=== PATIENT | male | born 1970 | race Caucasian/White ===

== ENCOUNTER 2017-10-13 00:17 | Emergency (ER) | payer SELFPAY ==
[2017-10-13 00:27] VITALS: O2SAT 98
[2017-10-13] MEDS ORDERED: MORPHINE SULFATE 4 MG INJ IV ONE (00:44)
[2017-10-13] MEDS ORDERED: Zofran 4 MG/2 ML VIAL IV ONE (00:44)
[2017-10-13] MEDS ORDERED: Sodium Chloride 0.9% 1000 ML 1,000 ML IV STA (00:44)
--- NOTE | 2017-10-13 00:50 | ERPHSYRPT ---
- History of Present Illness Time Seen by Provider: 10/13/17 00:40 Historian: patient Exam Limitations: no limitations Patient Subjective Stated Complaint: Abdominal Pain Triage Nursing Assessment: Pt presents to the ED with complaints of right sided abdominal pain that began this morning and has worsening through the day. Pt states there is nothing that makes pain better or worse. Pt denies other complaints. Pt is A&O x4, anxious and restless, guarding right side of abdomin. Physician History: 46 y/o male comes to the ER with complaints of right sided abdominal pain that started this morning. Pt describes the pain as sharp, constant, as high as 8/10 and pt has not taken any pain meds. Pt admits to 3 episodes of nausea and vomiting and is not able to keep anything down. Pt denies any fever, chills, constipation, diarrhea, bloody stools or urinary symptoms. Pt has had a kidney stone in the past and says that it feels similarly. Timing/Duration: today Activities at Onset: none Quality: sharpness Abdominal Pain Onset Location: other (right sided abdominal tenderness) Pain Radiation: no radiation Severity of Pain-Max: severe Severity of Pain-Current: severe Modifying Factors: Improves With: nothing Associated Symptoms: nausea, vomiting Previous symptoms: no prior history Allergies/Adverse Reactions: No Known Drug Allergies Allergy (Unverified 03/19/12 14:03) Hx Tetanus, Diphtheria Vaccination/Date Given: Yes Hx Influenza Vaccination/Date Given: No Hx Pneumococcal Vaccination/Date Given: No Immunizations Up to Date: No - Review of Systems Constitutional: No Fever, No Chills Eyes: No Symptoms Ears, Nose, & Throat: No Symptoms Respiratory: No Cough, No Dyspnea Cardiac: No Chest Pain, No Edema, No Syncope Abdominal/Gastrointestinal: Abdominal Pain, Nausea, No Diarrhea Genitourinary Symptoms: No Dysuria Musculoskeletal: No Back Pain, No Neck Pain Skin: No Rash Neurological: No Dizziness, No Focal Weakness, No Sensory Changes Psychological: No Symptoms Endocrine: No Symptoms All Other Systems: Reviewed and Negative - Past Medical History Pertinent Past Medical History: No Neurological History: No Pertinent History ENT History: No Pertinent History Cardiac History: No Pertinent History Respiratory History: No Pertinent History Endocrine Medical History: No Pertinent History Musculoskeletal History: Osteoarthritis GI Medical History: No Pertinent History History: No Pertinent History Psycho-Social History: No Pertinent History Male Reproductive Disorders: No Pertinent History Other Medical History: BACK PAIN - Past Surgical History Past Surgical History: Yes Neuro Surgical History: No Pertinent History Cardiac: No Pertinent History Respiratory: No Pertinent History Gastrointestinal: No Pertinent History Genitourinary: No Pertinent History Musculoskeletal: Orthopedic Surgery Male Surgical History: No Pertinent History Other Surgical History: lt knee x 5 - Social History Smoking Status: Current every day smoker How long have you smoked: 20 years Exposure to second hand smoke: Yes Drug Use: none Patient Lives Alone: No - Nursing Vital Signs Nursing Vital Signs: Initial Vital Signs Temperature 98.0 F 10/13/17 00:23 Pulse Rate 60 10/13/17 00:23 Respiratory Rate 23 10/13/17 00:23 Blood Pressure 164/110 10/13/17 00:23 O2 Sat by Pulse Oximetry 98 10/13/17 00:23 Pain Scale Pain Intensity 4 - Physical Exam General Appearance: no apparent distress, alert Eye Exam: PERRL/EOMI, eyes nml inspection Ears, Nose, Throat Exam: normal ENT inspection, pharynx normal, moist mucous membranes Neck Exam: normal inspection, non-tender, supple, full range of motion Respiratory Exam: normal breath sounds, lungs clear, No respiratory distress Cardiovascular Exam: regular rate/rhythm, normal heart sounds Gastrointestinal/Abdomen Exam: soft, tenderness, No normal bowel sounds, No distention, No mass Back Exam: normal inspection, normal range of motion, No CVA tenderness, No vertebral tenderness Extremity Exam: normal inspection, normal range of motion, pelvis stable Neurologic Exam: alert, oriented x 3, cooperative, normal mood/affect, nml cerebellar function, sensation nml, No motor deficits Skin Exam: normal color, warm, dry SpO2: 98 Oxygen Delivery: Room Air - Course Nursing assessment & vital signs reviewed: Yes Ordered Tests: Active Orders 24 hr Category Date Time Status IV Insertion STAT Care 10/13/17 00:44 Active ABDOMEN AND PELVIS W&WO CONTRA [CT] Stat Exams 10/13/17 00:45 Taken AMYLASE Stat Lab 10/13/17 00:48 Completed CBC W DIFF Stat Lab 10/13/17 00:48 Completed CMP Stat Lab 10/13/17 00:48 Completed LIPASE Stat Lab 10/13/17 00:48 Completed Lactic Acid Stat Lab 10/13/17 01:00 Completed UA W/RFX UR CULTURE Stat Lab 10/13/17 03:12 Received Medication Summary Discontinued Medications Generic Name Dose Route Start Last Admin Trade Name Ragini PRN Reason Stop Dose Admin Hydromorphone HCl 1 mg 10/13/17 01:26 10/13/17 01:33 Hydromorphone 1 Mg/Ml Ampule IV 10/13/17 01:27 1 mg STAT ONE Administration Hydromorphone HCl Confirm 10/13/17 01:32 Hydromorphone 1 Mg/Ml Ampule Administered 10/13/17 01:33 Dose 1 mg .ROUTE .STK-MED ONE Sodium Chloride 1,000 mls @ 999 mls/hr 10/13/17 00:44 10/13/17 00:57 Sodium Chloride 0.9% 1000 Ml IV 10/13/17 01:44 999 mls/hr .Q1H1M STA Administration Sodium Chloride Confirm 10/13/17 00:51 Sodium Chloride 0.9% 1000 Ml Administered 10/13/17 00:52 Dose 1,000 mls @ ud .ROUTE .STK-MED ONE Ketorolac Tromethamine 30 mg 10/13/17 01:43 10/13/17 01:45 Toradol 30 Mg Injection IV 10/13/17 01:44 30 mg STAT ONE Administration Ketorolac Tromethamine Confirm 10/13/17 01:44 Toradol 30 Mg Injection Administered 10/13/17 01:45 Dose 30 mg .ROUTE .STK-MED ONE Morphine Sulfate 4 mg 10/13/17 00:44 10/13/17 00:56 Morphine Sulfate 4 Mg Inj IV 10/13/17 00:45 4 mg STAT ONE Administration Morphine Sulfate Confirm 10/13/17 00:51 Morphine Sulfate 4 Mg Inj Administered 10/13/17 00:52 Dose 4 mg .ROUTE .STK-MED ONE Ondansetron HCl 4 mg 10/13/17 00:44 10/13/17 00:57 Zofran 4 Mg/2 Ml Vial IV 10/13/17 00:45 4 mg STAT ONE Administration Ondansetron HCl Confirm 10/13/17 00:51 Zofran 4 Mg/2 Ml Vial Administered 10/13/17 00:52 Dose 4 mg .ROUTE .STK-MED ONE Tamsulosin HCl 0.4 mg 01/27/18 03:11 Flomax 0.4 Mg PO 10/13/17 03:12 ONCE ONE Lab/Rad Data: Laboratory Result Diagrams 10/13/17 00:48 10/13/17 00:48 Laboratory Results 10/13/17 10/13/17 10/13/17 Range/Units 01:00 00:48 00:48 WBC 16.7 H (4.0-10.5) K/mm3 RBC 5.64 H (4.1-5.6) M/mm3 Hgb 16.3 (12.5-18.0) gm/dl Hct 47.7 (42-50) % MCV 84.6 (78-100) fl MCH 28.9 (26-32) pg MCHC 34.2 (32-36) g/dl RDW 13.0 (11.5-14.0) % Plt Count 318 (150-450) K/mm3 MPV 12.0 H (6-9.5) fl Gran % 55.4 (36.0-66.0) % Lymphocytes % 34.3 (24.0-44.0) % Monocytes % 6.8 (0.0-12.0) % Eosinophils % 2.9 (0.00-5.0) % Basophils % 0.6 (0.0-0.4) % Basophils # 0.10 (0-0.4) Sodium 141 (136-145) mEq/L Potassium 3.5 (3.5-5.1) mEq/L Chloride 106 (98-107) mEq/L Carbon Dioxide 25.8 (21-32) mEq/L Anion Gap 12.3 (5-15) MEQ/L BUN 12 (9-20) mg/dL Creatinine 1.21 (0.55-1.30) mg/dl Estimated GFR > 60 ML/MIN Glucose 124 H (70-110) MG/DL Lactic Acid 1.6 (0.4-2.0) Calcium 8.7 (8.5-10.1) mg/dL Total Bilirubin 0.20 (0.2-1.0) mg/dL AST 17 (15-37) U/L ALT 23 (12-78) U/L Alkaline Phosphatase 151 H (46-116) U/L Serum Total Protein 7.1 (6.4-8.2) gm/dL Albumin 3.7 (3.4-5.0) g/dL Amylase 77 (25-115) U/L Lipase 280 (73-393) U/L - Progress Progress: improved Progress Note: 10/13/17 03:18 Pt feels much better after receiving toradol and dilaudid and minimal relief after receiving morphine. The CT scan abd/pelvis shows a 4 mm stone in the proximal right ureter at the ureteropelvic junction with mild right hydronephrosis. The rest of the labs are within normal limits, except for an elevated white count of 16,000. Pt will be d/c home with scripts for toradol, zofran, percocet and flomax as well as a referral to urology. - Departure Time of Disposition: 03:21 Departure Disposition: Home Clinical Impression: Kidney stone Condition: Stable Critical Care Time: No Referrals: KRISTIN SUTHERLAND [Primary Care Provider] - JAYSON MITCHELL [COURTESY STAFF] - Instructions: Kidney Stones (DC) Additional Instructions: Call Dr Mitchell's office on Sunday for further recommendations. Return to the ER if you should have worsening abdominal pain, back pain, nausea , vomiting, fever or chills. Prescriptions: Ketorolac Tromethamine [Toradol] 10 mg PO QID PRN #20 tablet PRN Reason: Pain Ondansetron [Zofran Odt] 4 mg PO QID PRN #20 tab.rapdis PRN Reason: Nausea/Vomiting Oxycodone HCl/Acetaminophen [Percocet 5-325 mg Tablet] 1 each PO QID PRN #12 tablet MDD 4 PRN Reason: Severe Pain Tamsulosin HCl 0.4 mg [Flomax 0.4 MG] 0.4 mg PO DAILY 8 Days #8 cap
[2017-10-13 00:51] LABS: BASOPHIL % 0.6 % (0.0-0.4); Eosinophil % 2.9 % (0.00-5.0); Eosinophil (Absolute #) 0.48 (0-0.5); Granulocyte Absolute (ANC) 9.22 (1.4-6.9); Granulocytes % 55.4 % (36.0-66.0); Hematocrit 47.7 % (42-50); Hemoglobin 16.3 gm/dl (12.5-18.0); Lymphocyte (Absolute #) 5.72 (1.0-4.6); Lymphocytes % 34.3 % (24.0-44.0); Mean Cell Volume 84.6 fl (78-100); Mean Corpuscular Hemoglobin 28.9 pg (26-32); Mean Corpuscular Hgb Concent. 34.2 g/dl (32-36); Monocyte (Absolute #) 1.14 (0.0-1.3); Monocytes % 6.8 % (0.0-12.0); Platelet Count 318 K/mm3 (150-450); Red Blood Count 5.64 M/mm3 (4.1-5.6); White Blood Count 16.7 K/mm3 (4.0-10.5)
[2017-10-13] MEDS ORDERED: MORPHINE SULFATE 4 MG INJ ONE (00:51)
[2017-10-13] MEDS ORDERED: Sodium Chloride 0.9% 1000 ML 1,000 ML ONE (00:51)
[2017-10-13] MEDS ORDERED: Zofran 4 MG/2 ML VIAL ONE (00:51)
[2017-10-13 01:10] LABS: ALBUMIN 3.7 g/dL (3.4-5.0); ALKALINE PHOSPHATASE 151 U/L (46-116); AMYLASE 77 U/L (25-115); ANION GAP 12.3 MEQ/L (5-15); BLOOD UREA NITROGEN 12 mg/dL (9-20); CHLORIDE 106 mEq/L (98-107); Calcium 8.7 mg/dL (8.5-10.1); Carbon Dioxide 25.8 mEq/L (21-32); Creatinine 1 1.21 mg/dl (0.55-1.30); EST GLOMERULAR FILTRATION RATE > 60 ML/MIN; Glucose 124 MG/DL (70-110); LIPASE 280 U/L (73-393); Potassium 3.5 mEq/L (3.5-5.1); SGOT/AST 17 U/L (15-37); SGPT/ALT 23 U/L (12-78); SODIUM 141 mEq/L (136-145); Total Protein 7.1 gm/dL (6.4-8.2)
[2017-10-13] MEDS ORDERED: Hydromorphone 1 mg/ml Ampule IV ONE (01:26)
[2017-10-13] MEDS ORDERED: Hydromorphone 1 mg/ml Ampule ONE (01:32)
[2017-10-13] MEDS ORDERED: TORAdol 30 mg Injection IV ONE (01:43)
[2017-10-13] MEDS ORDERED: TORAdol 30 mg Injection ONE (01:44)
[2017-10-13] MEDS ORDERED: Flomax 0.4 MG PO ONE (03:11)
[2017-10-13 03:20] LABS: Appearance CLEAR (CLEAR); Bilirubin NEGATIVE (NEGATIVE); Blood 250 Ery/ul (0-5); Glucose NEGATIVE (NEGATIVE); Ketones NEGATIVE (NEGATIVE); Leukocyte Esterase NEGATIVE (NEGATIVE); Nitrite NEGATIVE (NEGATIVE); Protein,Urine Dip NEGATIVE (Negative); Specific Gravity 1.015 (1.005-1.025); Urobilinogen NORMAL mg/dL (0-1)
[2017-10-13 03:21] LABS: Bacteria FEW /HPF (NEGATIVE); Epithelial Cells FEW /HPF (FEW); Mucus MODERATE /HPF (NEGATIVE)
[2017-10-13 03:22] LABS: Slide Review 1 YES
[2017-10-13] MEDS ORDERED: Flomax 0.4 MG ONE (03:24)
[2017-10-13 03:44] VITALS: BP 143/90; PULSE 88
--- NOTE | 2017-10-13 10:02 | XRAY ---
Indication: Right lower quadrant pain. Nausea and vomiting. Elevated WBC. History renal stones. Multiple contiguous axial images obtained through the abdomen and pelvis prior to and following 80 cc of Isovue-370 contrast. Comparison: March 19, 2012. Lung bases again demonstrates bibasilar dependent atelectasis. Heart is not enlarged. Noncontrasted images demonstrates new 2-3 mm proximal right ureteral calculus, approximately L3 level. Minimal right-sided hydronephrosis but no perinephric fluid. There remains additional bilateral renal micro-calculi. Noncontrasted stomach and bowel loops appear nonobstructed. Normal appendix. No free fluid/air. Postcontrast images demonstrates normal visceral enhancement and renal excretion. Remaining liver, gallbladder, pancreas, spleen, adrenal glands, kidneys, and bladder appear unremarkable. There remains minimal aortoiliac calcifications. No AAA or pathological retroperitoneal lymphadenopathy. Remaining liver, gallbladder, pancreas, spleen, adrenal glands, kidneys, ureters, bladder, uterus, and aorta appear normal in CT appearance and attenuation. No pathological retroperitoneal lymphadenopathy. Osseous structures intact with interval L3-L4 posterior fusion surgery with intact spinal hardware and intervertebral spacer. Impression: 1. New 3-4 mm proximal right ureteral calculus producing partial obstruction. 2. There remains bilateral renal micro-calculi. Comment: Preliminary interpretation was made by [facility]. No discrepancy. CTDI 23.58
== END 2017-10-13 03:53 | disposition home or self-care (01) ==
LOC: ED 00:17
DX: N20.0 Calculus of kidney (principal); R10.9 Unspecified abdominal pain
CPT/HCPCS: 36000; 36415; 74178; 80053; 81000; 82150; 83605; 83690; 85025; 96360; 96374; 96375; 99284; J1170; J1885; J2270; J2405; A9270-GY

== ENCOUNTER 2019-01-28 05:47 | Day surgery (SDC) | payer OTHER ==
[2019-01-28] MEDS ORDERED: DIPRIVAN 200 MG/20 ML IV ONE (05:48)
[2019-01-28] MEDS ORDERED: Xylocaine-Mpf 2% 5 Ml Vial IJ ONE (05:48)
[2019-01-28] MEDS ORDERED: Lactated Ringers 1,000 ML IV SCH (06:30)
[2019-01-28] MEDS ORDERED: Lactated Ringers 1,000 ML IV ONE (07:23)
[2019-01-28 08:11] VITALS: O2SAT 97
[2019-01-28 08:53] VITALS: BP 125/66; PULSE 56
--- NOTE | 2019-01-28 13:14 | OP ---
SURGERY DATE/TIME: 01/28/2019 0730 PREOPERATIVE DIAGNOSIS: Screening exam. POSTOPERATIVE DIAGNOSIS: Normal colon. PROCEDURE: Colonoscopy. SURGEON: Dr. Fernández. ANESTHESIA: MAC. Medications given by anesthesia department. HISTORY: The patient is a 48 year-old white male patient presenting now for screening colonoscopy. He was appraised of the risks of the procedure including the risk of perforation, phlebitis, untoward reaction to medication, bleeding and missed lesions. The patient verbalized his understanding and desired to have the procedure performed. DESCRIPTION OF PROCEDURE: The patient was given the medications by the anesthesia department. He had continuous pulse oximetry, ECG monitoring, intermittent blood pressure monitoring and tidal CO2 monitoring during the examination. He was placed in the left lateral decubitus position. A digital rectal examination was performed and revealed normal anal sphincter tone, no masses and normal prostate. The flexible Olympus pediatric colonoscope was used to intubate the rectum. A view of the colon was developed sequentially to the cecum. Upon insertion and withdrawal, including a retroflex view in the rectum was noted no mucosal lesions. There was a fair amount of retained fecal material throughout the colon particularly material that appeared to be corn in the right side of the colon.
== END 2019-01-28 08:45 | disposition home or self-care (01) ==
LOC: SDC 05:47
PROVIDERS: ATTEND Family Medicine
DX: Z12.11 Encounter for screening for malignant neoplasm of colon (principal)
CPT/HCPCS: J2704

== ENCOUNTER 2019-03-21 14:58 | Observation (INO) | payer OTHER ==
[2019-03-21] MEDS ORDERED: Zofran 4 MG/2 ML VIAL IV ONE (15:48)
--- NOTE | 2019-03-21 15:48 | ERPHSYRPT ---
- History of Present Illness Time Seen by Provider: 03/21/19 15:15 Patient Subjective Stated Complaint: 3 days ago the pt sat down at the couch and it felt like a little pinch to his left elbow, he lifted it up and repositioned it and it was fine, next morning the elbow began hurting and was swollen and hot and began vomiting, today the medial side of his arm and elbow is swollen, red, and hot and he is vomiting today, numbness and tingling in the ring finger and pinky finger of the left hand Triage Nursing Assessment: Vitals wnl, capillary refill normal, pulses normal, has been taking NSAID's to try and help, no other issues at this time Physician History: PATIENT COMPLAINS OF LEFT ELBOW PAIN WITH SWELLING 3 DAYS AGO. DENIES INJURY OR TRAUMA, HAS PROGRESSIVE REDNESS AND SWELLING OVER PAST 2 DAYS. HAS SEVERE PAIN UPON MOTION. DENIES FEVER OR CHILLS. Occurred: days ago Method of Injury: unknown Quality: constant Severity of Pain-Max: moderate Severity of Pain-Current: moderate Extremities Pain Location: elbow: left Modifying Factors: Improves With: movement Associated Symptoms: none Allergies/Adverse Reactions: No Known Drug Allergies Allergy (Verified 03/21/19 15:16) Home Medications: Diclofenac Sodium [Voltaren] 75 mg PO BID 01/22/19 [History] Gabapentin [Neurontin] 300 mg PO TID 01/22/19 [History] Nitroglycerin 0.4 mg Tablet [Nitrostat 0.4 MG Tablet] 0.4 mg SL UD [History] Hx Tetanus, Diphtheria Vaccination/Date Given: Yes Hx Influenza Vaccination/Date Given: No Hx Pneumococcal Vaccination/Date Given: No - Review of Systems Constitutional: No Fever, No Chills Eyes: No Symptoms Ears, Nose, & Throat: No Symptoms Respiratory: No Symptoms, No Cough, No Dyspnea Cardiac: No Symptoms, No Chest Pain, No Edema, No Syncope Abdominal/Gastrointestinal: No Symptoms, No Abdominal Pain, No Nausea, No Vomiting, No Diarrhea Genitourinary Symptoms: Incontinence, No Dysuria Musculoskeletal: Joint Redness, Joint Pain, No Back Pain, No Neck Pain Skin: No Rash Neurological: No Dizziness, No Focal Weakness, No Sensory Changes Psychological: No Symptoms Endocrine: No Symptoms Hematologic/Lymphatic: No Symptoms All Other Systems: Reviewed and Negative - Past Medical History Pertinent Past Medical History: Yes Neurological History: No Pertinent History ENT History: No Pertinent History Cardiac History: No Pertinent History Respiratory History: No Pertinent History Endocrine Medical History: No Pertinent History Musculoskeletal History: Arthritis GI Medical History: No Pertinent History History: No Pertinent History Psycho-Social History: No Pertinent History Male Reproductive Disorders: No Pertinent History Other Medical History: BACK PAIN--back fusion - Past Surgical History Past Surgical History: Yes Neuro Surgical History: No Pertinent History Cardiac: No Pertinent History Respiratory: No Pertinent History Gastrointestinal: No Pertinent History Genitourinary: No Pertinent History Musculoskeletal: Orthopedic Surgery Male Surgical History: No Pertinent History Other Surgical History: lt knee x 5 with last being knee replacement. Back fusion - Social History Smoking Status: Current every day smoker How long have you smoked: 30 years Exposure to second hand smoke: Yes Drug Use: marijuana Patient Lives Alone: No - Nursing Vital Signs Nursing Vital Signs: Initial Vital Signs Temperature 98.9 F 03/21/19 15:06 Pulse Rate 88 03/21/19 15:06 Blood Pressure 132/83 03/21/19 15:06 O2 Sat by Pulse Oximetry 97 03/21/19 15:06 Pain Scale Pain Intensity 7 - Physical Exam General Appearance: alert Eyes, Ears, Nose, Throat Exam: moist mucous membranes Neck Exam: non-tender, supple Cardiovascular/Respiratory Exam: chest non-tender, normal breath sounds, regular rate/rhythm, no respiratory distress Abdominal Exam: non-tender, No guarding Back Exam: normal inspection, No vertebral tenderness Elbow/Forearm Exam: limited ROM, pain (MARKED SWELLING WITH ERYTHEMA, WARMTH AND TENDERNESS OVER LEFT OLECRANON 15CM X 10CM SURROUND SWELLING AND ERYTHEMA, LEFT RADIAL PULSE 2+, FULL RANGE OF MOTION OF ALL DIGITS,), soft tissue tenderness, swelling DTR - Upper Extremity Exam: bicep (R): 2+ Neuro/Tendon Exam: normal sensation, normal motor functions Mental Status Exam: alert, oriented x 3, cooperative Skin Exam: normal color, warm, dry SpO2 Interpretation: normal SpO2: 97 - Radiology Exams Left Elbow X-ray Interpretation: Interpreted by me (OLD LEFT OLECRANOL AVULSION FRACTURE, MARKED SOFT TISSUE SWELLING) Ordered Tests: Active Orders 24 hr Category Date Time Status IV Insertion STAT Care 03/21/19 16:36 Active ELBOW (MINIMUM 3 VIEWS) Stat Exams 03/21/19 15:50 Taken BLOOD CULTURE Stat Lab 03/21/19 16:25 Received BMP Stat Lab 03/21/19 16:15 Completed CBC W DIFF Stat Lab 03/21/19 16:15 Completed Manual Differential NC Stat Lab 03/21/19 16:15 Completed Medication Summary Generic Name Dose Route Start Last Admin Trade Name Ragini PRN Reason Stop Dose Admin Sodium Chloride 1,000 mls @ 250 mls/hr 03/21/19 16:00 03/21/19 16:27 Sodium Chloride 0.9% 1000 Ml IV 04/20/19 15:59 250 mls/hr .Q4H NIKI Administration Discontinued Medications Generic Name Dose Route Start Last Admin Trade Name Ragini PRN Reason Stop Dose Admin Hydromorphone HCl 1 mg 03/21/19 15:51 03/21/19 16:28 Dilaudid 2 Mg Injection IV 03/21/19 15:52 1 mg STAT ONE Administration Hydromorphone HCl Confirm 03/21/19 16:23 Hydromorphone 1 Mg/Ml Ampule Administered 03/21/19 16:24 Dose 1 mg .ROUTE .STK-MED ONE Hydromorphone HCl Confirm 03/21/19 16:26 Hydromorphone 1 Mg/Ml Ampule Administered 03/21/19 16:27 Dose 1 mg .ROUTE .STK-MED ONE Ondansetron HCl 4 mg 03/21/19 15:48 03/21/19 16:27 Zofran 4 Mg/2 Ml Vial IV 03/21/19 15:49 4 mg STAT ONE Administration Ondansetron HCl Confirm 03/21/19 16:20 Zofran 4 Mg/2 Ml Vial Administered 03/21/19 16:21 Dose 4 mg .ROUTE .STK-MED ONE Lab/Rad Data: Laboratory Result Diagrams 03/21/19 16:15 03/21/19 16:15 Laboratory Results 03/21/19 03/21/19 Range/Units 16:15 16:15 WBC 24.0 H (4.0-10.5) K/mm3 RBC 5.72 H (4.1-5.6) M/mm3 Hgb 17.4 (12.5-18.0) gm/dl Hct 49.9 (42-50) % MCV 87.2 (78-100) fl MCH 30.4 (26-32) pg MCHC 34.9 (32-36) g/dl RDW 13.3 (11.5-14.0) % Plt Count 254 (150-450) K/mm3 MPV 11.9 H (6-9.5) fl Segmented Neutrophils 82 H (36.-66.) % Band Neutrophils 2 (0.0-2.0) % Lymphocytes (Manual) 10 L (24-44) % Monocytes (Manual) 4 (0.0-12.0) % Eosinophils (Manual) 1 (0.00-3.0) % Atypical Lymphocytes 1 % Toxic Granulation 1+ Platelet Estimate NORMAL (NORMAL) RBC Morphology NORMAL Sodium 137 (137-145) mmol/L Potassium 4.3 (3.5-5.1) mmol/L Chloride 106 (98-107) mmol/L Carbon Dioxide 21 L (22-30) mmol/L Anion Gap 14.4 (5-15) MEQ/L BUN 12 (9-20) mg/dL Creatinine 0.90 (0.66-1.25) mg/dL Estimated GFR > 60.0 ML/MIN Glucose 96 (74-106) mg/dL Calcium 9.2 (8.4-10.2) mg/dL - Progress Progress: improved Progress Note: 03/21/19 17:20 IV NORMAL SALINE 250ML/HR. AFTER BLOOD CULTURES VANCOMYCIN 1GM IVPB, ZOFRAN 4MG , DILAUDID 1MG IV Discussed with : Marcy (DISCUSSED WITH DR HENNING AT 1700 FOR OBSERVATION) - Departure Departure Disposition: Observation Clinical Impression: LEFT OLECRANON BURSITIS,CELLULITIS Condition: Stable Critical Care Time: No Referrals: KRISTIN SUTHERLAND [Primary Care Provider] -
[2019-03-21] MEDS ORDERED: DILAUDID 2 MG INJECTION IV ONE (15:51)
[2019-03-21] MEDS ORDERED: Sodium Chloride 0.9% 1000 ML 1,000 ML IV SCH (16:00)
[2019-03-21] MEDS ORDERED: Zofran 4 MG/2 ML VIAL ONE (16:20)
[2019-03-21] MEDS ORDERED: Hydromorphone 1 mg/ml Ampule ONE ×2 (16:23→16:26)
[2019-03-21] MEDS ORDERED: Sodium Chloride 0.9% 1000 ML 1,000 ML ONE (16:24)
[2019-03-21 16:35] LABS: Hematocrit 49.9 % (42-50); Hemoglobin 17.4 gm/dl (12.5-18.0); Mean Cell Volume 87.2 fl (78-100); Mean Corpuscular Hemoglobin 30.4 pg (26-32); Mean Corpuscular Hgb Concent. 34.9 g/dl (32-36); Mean Platelet Volume 11.9 fl (6-9.5); Platelet Count 254 K/mm3 (150-450); Red Blood Count 5.72 M/mm3 (4.1-5.6); Red Cell Distribution Width 13.3 % (11.5-14.0)
[2019-03-21 16:45] LABS: ANION GAP 14.4 MEQ/L (5-15); BLOOD UREA NITROGEN 12 mg/dL (9-20); CHLORIDE 106 mmol/L (98-107); Calcium 9.2 mg/dL (8.4-10.2); Carbon Dioxide 21 mmol/L (22-30); Glucose 96 mg/dL (74-106); Potassium 4.3 mmol/L (3.5-5.1); SODIUM 137 mmol/L (137-145)
[2019-03-21 16:57] LABS: ATYPICAL LYMPHS 1 %; BAND 2 % (0.0-2.0); Eosinophil 1 % (0.00-3.0); Lymphocytes 10 % (24-44); Monocyte 4 % (0.0-12.0); Neutrophils 82 % (36.-66.); Total Cells Counted 100; Toxic Granulation 1+
[2019-03-21 16:58] LABS: Platelet Estimate NORMAL (NORMAL)
[2019-03-21] MEDS ORDERED: Vancomycin 1GM/ Ns 250ML*** 250 ML IV ONE (17:38)
[2019-03-21] MEDS ORDERED: VANCOCIN 1 GM VIAL*** 1 GM in Sodium Chloride 0.9% 250 ML 250 ML IV SCH (18:00)
[2019-03-21] MEDS: MORPHINE SULFATE 4 MG INJ IV PRN (19:53)
[2019-03-21] MEDS: Zosyn 3.375GM/100 Ml D5W 3.375 GM/100 ML IVPB IV SCH (19:59)
[2019-03-21] MEDS: Sodium Chloride 0.9% 1000 ML 1,000 ML IV SCH (20:04)
--- NOTE | 2019-03-21 21:55 | XRAY ---
Indication: Pain, erythema, and swelling. Finger tingling. No known injury. Comparison: None 3 views of the left elbow demonstrates avulsion fracture involving the tip of the olecranon process with soft tissue swelling. Tiny spurring of the radial head. No other bony, articular, or soft tissue abnormalities.
[2019-03-22] MEDS: Sodium Chloride 0.9% 1000 ML 1,000 ML IV SCH ×2 (00:24→14:35)
[2019-03-22] MEDS: TYLENOL 325 MG PO PRN ×3 (00:27→14:37)
[2019-03-22] MEDS: Zosyn 3.375GM/100 Ml D5W 3.375 GM/100 ML IVPB IV SCH ×4 (00:59→17:03)
[2019-03-22] MEDS: VANCOCIN 1 GM VIAL*** 1.75 GM in Sodium Chloride 0.9% 500 ML 500 ML IV SCH ×2 (09:08→21:48)
--- NOTE | 2019-03-22 13:27 | PCM.HP ---
History of Present Illness - Chief Complaint Chief Complaint: left elbow pain for 3 days History of Present Illness: is a 48 year old malecame to ER with complaints that 3 days ago when he sat down at the couch and it felt like a little pinch to his left elbow , he lifted it up and repositioned it and it was fine, next morning the elbow began hurting and was swollen and hot and began vomiting, today the medial side of his arm and elbow is swollen, red, and hot and he is vomiting today, numbness and tingling in the ring finger and pinky finger of the left hand. - Review of Systems Constitutional: No Fever, No Chills Eyes: No Symptoms Ears, Nose, & Throat: No Symptoms Respiratory: No Cough, No Short Of Breath Cardiac: No Chest Pain, No Edema, No Syncope Abdominal/Gastrointestinal: No Abdominal Pain, No Nausea, No Vomiting, No Diarrhea Genitourinary Symptoms: No Dysuria Musculoskeletal: No Back Pain, No Neck Pain Skin: Cellulitis, Induration, No Rash Neurological: No Dizziness, No Focal Weakness, No Sensory Changes Psychological: No Symptoms Endocrine: No Symptoms Hematologic/Lymphatic: No Symptoms Immunological/Allergic: No Symptoms Medications & Allergies Home Medications: Home Medication List Diclofenac Sodium [Voltaren] 75 mg PO BID 01/22/19 [History Confirmed 03/21/19] Gabapentin [Neurontin] 300 mg PO TID 01/22/19 [History Confirmed 03/21/19] Nitroglycerin 0.4 mg Tablet [Nitrostat 0.4 MG Tablet] 0.4 mg SL UD [History Confirmed 03/21/19] Allergies/Adverse Reactions: Allergies Allergy/AdvReac Type Severity Reaction Status Date / Time No Known Drug Allergies Allergy Verified 03/21/19 15:16 - Past Medical History Past Medical History: Yes Neurological History: No Pertinent History ENT History: No Pertinent History Cardiac History: No Pertinent History Respiratory History: No Pertinent History Endocrine Medical History: No Pertinent History Musculoskelatal History: Arthritis GI Medical History: No Pertinent History History: No Pertinent History Pyscho-Social History: No Pertinent History Male Reproductive Disorders: No Pertinent History Comment: BACK PAIN--back fusion - Past Surgical History Past Surgical History: Yes Neuro Surgical History: No Pertinent History Cardiac History: No Pertinent History Respiratory Surgery: No Pertinent History GI Surgical History: No Pertinent History Genitourinary Surgical Hx: No Pertinent History Musculskeletal Surgical Hx: Orthopedic Surgery Male Surgical History: No Pertinent History Other Surgical History: lt knee x 5 with last being knee replacement. Back fusion - Social History Smoking Status: Current every day smoker How long have you smoked: 20 YEARS Exposure to second hand smoke: No Alcohol: None Drug Use: marijuana - Physical Exam Vital Signs: Vital Signs - 24 hr Temp Pulse Resp BP Pulse Ox 03/22/19 12:29 98.8 F 66 20 119/68 98 03/22/19 07:19 98.4 F 68 20 119/64 97 03/22/19 03:52 98.7 F 69 16 118/69 98 03/21/19 23:50 99.4 F 83 16 127/71 98 03/21/19 20:23 98.6 F 77 18 136/83 97 03/21/19 18:12 98.6 F 77 18 136/86 97 03/21/19 17:21 97 03/21/19 16:37 80 18 146/87 97 03/21/19 16:14 82 127/90 100 03/21/19 15:06 98.9 F 88 132/83 97 General Appearance: no apparent distress, alert Neurologic Exam: alert, oriented x 3, cooperative, normal mood/affect, nml cerebellar function, nml station & gait, sensation nml, No motor deficits Eye Exam: PERRL/EOMI, eyes nml inspection Ears, Nose, Throat Exam: normal ENT inspection, TMs normal, pharynx normal, moist mucous membranes Neck Exam: normal inspection, non-tender, supple, full range of motion Respiratory Exam: normal breath sounds, lungs clear, No respiratory distress Cardiovascular Exam: regular rate/rhythm, normal heart sounds, normal peripheral pulses Gastrointestinal/Abdomen Exam: soft, normal bowel sounds, No tenderness, No mass Back Exam: normal inspection, normal range of motion, No CVA tenderness, No vertebral tenderness Extremity Exam: normal inspection, normal range of motion, pelvis stable Skin Exam: normal color, warm, dry, other (cellulitis of left elbow), No rash Lymphatic Exam: No adenopathy Results - Labs Lab/Micro Results: Lab Results-Last 24 Hours 03/21/19 03/21/19 Range/Units 16:15 16:15 WBC 24.0 H (4.0-10.5) K/mm3 RBC 5.72 H (4.1-5.6) M/mm3 Hgb 17.4 (12.5-18.0) gm/dl Hct 49.9 (42-50) % MCV 87.2 (78-100) fl MCH 30.4 (26-32) pg MCHC 34.9 (32-36) g/dl RDW 13.3 (11.5-14.0) % Plt Count 254 (150-450) K/mm3 MPV 11.9 H (6-9.5) fl Segmented Neutrophils 82 H (36.-66.) % Band Neutrophils 2 (0.0-2.0) % Lymphocytes (Manual) 10 L (24-44) % Monocytes (Manual) 4 (0.0-12.0) % Eosinophils (Manual) 1 (0.00-3.0) % Atypical Lymphocytes 1 % Toxic Granulation 1+ Platelet Estimate NORMAL (NORMAL) RBC Morphology NORMAL Sodium 137 (137-145) mmol/L Potassium 4.3 (3.5-5.1) mmol/L Chloride 106 (98-107) mmol/L Carbon Dioxide 21 L (22-30) mmol/L Anion Gap 14.4 (5-15) MEQ/L BUN 12 (9-20) mg/dL Creatinine 0.90 (0.66-1.25) mg/dL Estimated GFR > 60.0 ML/MIN Glucose 96 (74-106) mg/dL Calcium 9.2 (8.4-10.2) mg/dL - Radiology Impressions Radiology Exams & Impressions: Radiology Procedures Category Date Time Status ELBOW (MINIMUM 3 VIEWS) Stat Exams 03/21/19 15:50 Completed Assessment/Plan (1) Cellulitis of left elbow Current Visit: Yes Status: Acute Assessment & Plan: Last Vital Signs Temp 98.8 F 03/22/19 12:29 Pulse 66 03/22/19 12:29 Resp 20 03/22/19 12:29 BP 119/68 03/22/19 12:29 Pulse Ox 98 03/22/19 12:29 Allergies No Known Drug Allergies Allergy (Verified 03/21/19 15:16) Active Medications Acetaminophen (Tylenol 325 Mg) 650 mg PO Q4H PRN PRN PRN Reason: PAIN AND/OR FEVER Stop: 04/20/19 17:22 Last Admin: 03/22/19 08:05 Dose: 650 mg Piperacillin Sod/Tazobactam Sod (Zosyn 3.375gm/100 Ml D5w) 3.375 gm in 100 mls @ 200 mls/hr IV Q6HT [facility] Stop: 04/20/19 17:59 Last Admin: 03/22/19 12:08 Dose: 200 mls/hr Sodium Chloride (Sodium Chloride 0.9% 1000 Ml) 1,000 mls @ 100 mls/hr IV .Q10H [facility] Stop: 04/20/19 17:29 Last Admin: 03/22/19 00:24 Dose: 100 mls/hr Vancomycin HCl 1.75 gm/ Sodium (Chloride) 500 mls @ 250 mls/hr IV Q12HT [facility] Stop: 04/21/19 09:59 Last Admin: 03/22/19 09:08 Dose: 250 mls/hr Morphine Sulfate (Morphine Sulfate 4 Mg Inj) 4 mg IV Q3H/PRN PRN PRN Reason: PAIN Stop: 03/26/19 17:22 Last Admin: 03/21/19 19:53 Dose: 4 mg Intake & Output 03/22/19 03/23/19 11:59 11:59 Intake Total 3334 250 Output Total 300 Balance 3334 -50 Weight 100.4 kg Orders 03/21/19 18:41 Crew Manager/Discharge Plan 03/21/19 Dinner Regular Diet 03/22/19 10:00 Vancomycin HCl 1 gm Inj [Vancocin 1 gm Vial] 1.75 gm NaCl 0.9% 500 ml [ Sodium Chloride 0.9% 500 ML] 500 ml IV Q12HT 03/22/19 13:26 CBC NOW Lab Tests 03/21/19 03/21/19 16:15 16:15 WBC 24.0 H RBC 5.72 H Hgb 17.4 Hct 49.9 MCV 87.2 MCH 30.4 MCHC 34.9 RDW 13.3 Plt Count 254 MPV 11.9 H Segmented Neutrophils 82 H Band Neutrophils 2 Lymphocytes (Manual) 10 L Monocytes (Manual) 4 Eosinophils (Manual) 1 Atypical Lymphocytes 1 Toxic Granulation 1+ Platelet Estimate NORMAL RBC Morphology NORMAL Sodium 137 Potassium 4.3 Chloride 106 Carbon Dioxide 21 L Anion Gap 14.4 BUN 12 Creatinine 0.90 Estimated GFR > 60.0 Glucose 96 Calcium 9.2 Code(s): L03.114 - CELLULITIS OF LEFT UPPER LIMB
[2019-03-22] MEDS: MORPHINE SULFATE 4 MG INJ IV PRN (13:46)
[2019-03-22 13:53] LABS: Hematocrit 44.5 % (42-50); Hemoglobin 15.4 gm/dl (12.5-18.0); Mean Cell Volume 87.9 fl (78-100); Mean Corpuscular Hemoglobin 30.4 pg (26-32); Mean Corpuscular Hgb Concent. 34.6 g/dl (32-36); Mean Platelet Volume 12.2 fl (6-9.5); Platelet Count 241 K/mm3 (150-450); Red Blood Count 5.06 M/mm3 (4.1-5.6); Red Cell Distribution Width 13.2 % (11.5-14.0); White Blood Count 20.7 K/mm3 (4.0-10.5)
[2019-03-22] MEDS ORDERED: Zofran 4 MG/2 ML VIAL IV PRN (13:55)
[2019-03-22] MEDS ORDERED: Nitrostat 0.4 MG Tablet SL PRN (15:45)
[2019-03-22] MEDS: NEURONTIN 300 MG PO SCH ×2 (16:18→21:42)
[2019-03-22] MEDS: NORCO 5/325 MG PO PRN ×2 (19:55→23:59)
[2019-03-22] MEDS: VOLTAREN 50 MG PO SCH (21:42)
[2019-03-22] MEDS ORDERED: NON-FORMULARY ITEM (Diclofenac Sodium [Voltaren] 75 MG) PO SCH (22:00)
[2019-03-23] MEDS: Zosyn 3.375GM/100 Ml D5W 3.375 GM/100 ML IVPB IV SCH ×2 (00:47→06:07)
[2019-03-23] MEDS: Sodium Chloride 0.9% 1000 ML 1,000 ML IV SCH (04:20)
[2019-03-23] MEDS: NEURONTIN 300 MG PO SCH (09:41)
[2019-03-23] MEDS: VOLTAREN 50 MG PO SCH (09:41)
[2019-03-23] MEDS: VANCOCIN 1 GM VIAL*** 1.75 GM in Sodium Chloride 0.9% 500 ML 500 ML IV SCH (09:42)
--- NOTE | 2019-03-23 10:20 | PCM.DS ---
Discharge Summary Date of Admission: 03/21/19 17:59 Admitting Physician: NENA HENNING Primary Care Provider: KRISTIN SUTHERLAND Allergies Allergies No Known Drug Allergies Allergy (Verified 03/21/19 15:16) Hospital Summary - Hospital Course Hospital Course: Last Vital Signs Temp 97.8 F 03/23/19 07:13 Pulse 62 03/23/19 07:13 Resp 20 03/23/19 07:13 BP 118/55 03/23/19 07:13 Pulse Ox 98 03/23/19 07:13 Allergies No Known Drug Allergies Allergy (Verified 03/21/19 15:16) Active Medications Acetaminophen (Tylenol 325 Mg) 650 mg PO Q4H PRN PRN PRN Reason: PAIN AND/OR FEVER Stop: 04/20/19 17:22 Last Admin: 03/22/19 14:37 Dose: 650 mg Hydrocodone Bitart/Acetaminophen ([place] 5/325 Mg) 1 tab PO Q4H PRN PRN PRN Reason: PAIN Stop: 03/27/19 15:22 Last Admin: 03/22/19 23:59 Dose: 1 tab Diclofenac Sodium (Voltaren 50 Mg) 75 mg PO BID [facility] Stop: 04/21/19 21:59 Last Admin: 03/23/19 09:41 Dose: 75 mg Gabapentin (Neurontin 300 Mg) 300 mg PO TID [facility] Stop: 04/21/19 15:59 Last Admin: 03/23/19 09:41 Dose: 300 mg Piperacillin Sod/Tazobactam Sod (Zosyn 3.375gm/100 Ml D5w) 3.375 gm in 100 mls @ 200 mls/hr IV Q6HT [facility] Stop: 04/20/19 17:59 Last Admin: 03/23/19 06:07 Dose: 200 mls/hr Sodium Chloride (Sodium Chloride 0.9% 1000 Ml) 1,000 mls @ 100 mls/hr IV .Q10H [facility] Stop: 04/20/19 17:29 Last Admin: 03/23/19 04:20 Dose: 100 mls/hr Vancomycin HCl 1.75 gm/ Sodium (Chloride) 500 mls @ 250 mls/hr IV Q12HT [facility] Stop: 04/21/19 09:59 Last Admin: 03/23/19 09:42 Dose: 250 mls/hr Nitroglycerin (Nitrostat 0.4 Mg Tablet) 0.4 mg SL UD PRN Stop: 04/21/19 15:44 Ondansetron HCl (Zofran 4 Mg/2 Ml Vial) 4 mg IV Q4H PRN PRN PRN Reason: NAUSEA/VOMITING Stop: 04/21/19 13:54 Last Admin: 03/22/19 14:45 Dose: 4 mg Intake & Output 03/22/19 03/23/19 11:59 11:59 Intake Total 3334 5519 Output Total 300 Balance 3334 5219 Weight 100.4 kg Orders 03/22/19 10:00 Vancomycin HCl 1 gm Inj [Vancocin 1 gm Vial] 1.75 gm NaCl 0.9% 500 ml [ Sodium Chloride 0.9% 500 ML] 500 ml IV Q12HT 03/22/19 13:55 Ondansetron HCl 4 mg/2 ml [Zofran 4 MG/2 ML VIAL] 4 mg IV Q4H PRN PRN 03/22/19 15:23 Hydrocodone/APAP 5/325 [[place] 5/325 mg] 1 tab PO Q4H PRN PRN 03/22/19 15:45 Nitroglycerin 0.4 mg Tablet [Nitrostat 0.4 MG Tablet] 0.4 mg SL UD PRN 03/22/19 16:00 Gabapentin 300 mg [Neurontin 300 mg] 300 mg PO TID 03/22/19 22:00 Diclofenac Sodium 50 mg [Voltaren 50 mg] 75 mg PO BID 03/23/19 09:35 CBC Routine Lab Tests 03/22/19 13:45 WBC 20.7 H RBC 5.06 Hgb 15.4 Hct 44.5 MCV 87.9 MCH 30.4 MCHC 34.6 RDW 13.2 Plt Count 241 MPV 12.2 H Microbiology 03/21/19 16:25 Blood Blood Culture - Preliminary NO GROWTH TO DATE 03/21/19 16:15 Blood Blood Culture - Preliminary NO GROWTH TO DATE - Vitals & Intake/Output Vital Signs: Vital Signs Temperature 97.8 F 03/23/19 07:13 Pulse Rate 62 03/23/19 07:13 Respiratory Rate 20 03/23/19 07:13 Blood Pressure 118/55 03/23/19 07:13 O2 Sat by Pulse Oximetry 98 03/23/19 07:13 Intake & Output: Intake & Output 03/20/19 03/21/19 03/22/19 03/23/19 11:59 11:59 11:59 11:59 Intake Total 3334 5519 Output Total 300 Balance 3334 5219 Weight 100.4 kg - Lab Result Diagrams: 03/22/19 13:45 03/21/19 16:15 Lab Results-Last 24 Hrs: Lab Results-Last 24 Hours 03/22/19 Range/Units 13:45 WBC 20.7 H (4.0-10.5) K/mm3 RBC 5.06 (4.1-5.6) M/mm3 Hgb 15.4 (12.5-18.0) gm/dl Hct 44.5 (42-50) % MCV 87.9 (78-100) fl MCH 30.4 (26-32) pg MCHC 34.6 (32-36) g/dl RDW 13.2 (11.5-14.0) % Plt Count 241 (150-450) K/mm3 MPV 12.2 H (6-9.5) fl Micro Results-Entire Visit: Microbiology 03/21/19 16:25 Blood Culture - Preliminary Blood NO GROWTH TO DATE 03/21/19 16:15 Blood Culture - Preliminary Blood NO GROWTH TO DATE - Radiology Exams Ordered Rad Exams-Entire Visit: Radiology Procedures Category Date Time Status ELBOW (MINIMUM 3 VIEWS) Stat Exams 03/21/19 15:50 Completed - Procedures and Test Procedures and Tests throughout Hospitalization: Therapy Orders & Screens 03/21/19 18:41 PT Screen per Nursing Assess Comment: Protocol Order Physician Instructions: Greater than 3 points order PT Admission Screenin Reason For Exam: Triggered on Admission Diagnosis: LEFT OLECRANON BURSITIS/CELLULITIS Open Wound/Cellutlitis/Pressure Ulcers: Yes Acute Fx/ORIF/Change in wt bearing status: No Severe MUSCULOSKELETAL pain: No ADL Dysfunction: No Acute CVA w/Hemiparesis/Hemiplegia: No Decreased Functional Mobility/Strength: No Sprain/Strain: No Acute Post-op Mobility Dysfunction: No Total Points: 5 Smoking Cessation Education Comment: Diagnosis: LEFT OLECRANON BURSITIS/CELLULITIS Smoking Status: Current every day smoker How long have you smoked: 20 YEARS Have you smoked in the past 12 months: Yes Approximately how many cigarettes per day: PACK A DAY Do you dip or chew tobacco: No Discharge Exam General Appearance: no apparent distress, alert Neurologic Exam: alert, oriented x 3, cooperative, normal mood/affect, nml cerebellar function, sensation nml, No motor deficits Eye Exam: PERRL, EOMI, eyes nml inspection Ears, Nose, Throat Exam: normal ENT inspection, pharynx normal, moist mucous membranes Neck Exam: normal inspection, non-tender, supple, full range of motion Respiratory Exam: normal breath sounds, lungs clear, No respiratory distress Cardiovascular Exam: regular rate/rhythm, normal heart sounds Gastrointestinal/Abdomen Exam: soft, No tenderness, No mass Male Genitalia Exam: deferred Rectal Exam: deferred Back Exam: normal inspection, normal range of motion, No CVA tenderness, No vertebral tenderness Extremity Exam: normal inspection, normal range of motion Skin Exam: normal color, warm, dry Final Diagnosis/Problem List - Final Discharge Diagnosis/Problem (1) Cellulitis of left elbow Current Visit: Yes Status: Acute Assessment & Plan: Chief Complaint Diagnosis left elbow pain for 3 days Allergies Allergy/AdvReac Type Severity Reaction Status Date / Time No Known Drug Allergies Allergy Verified 03/21/19 15:16 Vital Signs (Last 24 hours) Temp Pulse Resp BP Pulse Ox 03/23/19 07:13 97.8 F 62 20 118/55 98 03/23/19 07:09 97.8 F 62 20 118/55 98 03/23/19 04:05 98.1 F 66 16 119/62 97 03/22/19 23:42 98.8 F 71 16 123/72 97 03/22/19 20:00 98.4 F 72 18 128/74 98 03/22/19 16:14 98 F 68 20 118/68 97 03/22/19 12:29 98.8 F 66 20 119/68 98 Current Medications Generic Name Dose Route Start Last Admin Trade Name Freq PRN Reason Stop Dose Admin Acetaminophen 650 mg 03/21/19 17:23 03/22/19 14:37 Tylenol 325 Mg PO 04/20/19 17:22 650 mg Q4H PRN PRN Administration PAIN AND/OR FEVER Hydrocodone Bitart/Acetaminophen 1 tab 03/22/19 15:23 03/22/19 23:59 [place] 5/325 Mg PO 03/27/19 15:22 1 tab Q4H PRN PRN Administration PAIN Diclofenac Sodium 75 mg 03/22/19 22:00 03/23/19 09:41 Voltaren 50 Mg PO 04/21/19 21:59 75 mg BID NIKI Administration Gabapentin 300 mg 03/22/19 16:00 03/23/19 09:41 Neurontin 300 Mg PO 04/21/19 15:59 300 mg TID NIKI Administration Piperacillin Sod/Tazobactam Sod 3.375 gm in 100 mls @ 200 mls/hr 03/21/19 18: 00 03/23/19 06:07 Zosyn 3.375gm/100 Ml D5w IV 04/20/19 17:59 200 mls/hr Q6HT NIKI Administration Sodium Chloride 1,000 mls @ 100 mls/hr 03/21/19 17:30 03/23/19 04:20 Sodium Chloride 0.9% 1000 Ml IV 04/20/19 17:29 100 mls/hr .Q10H NIKI Administration Vancomycin HCl 1.75 gm/ Sodium 500 mls @ 250 mls/hr 03/22/19 10:00 03/23/19 09:42 Chloride IV 04/21/19 09:59 250 mls/hr Q12HT NIKI Administration Nitroglycerin 0.4 mg 03/22/19 15:45 Nitrostat 0.4 Mg Tablet SL 04/21/19 15:44 UD PRN Ondansetron HCl 4 mg 03/22/19 13:55 03/22/19 14:45 Zofran 4 Mg/2 Ml Vial IV 04/21/19 13:54 4 mg Q4H PRN PRN Administration NAUSEA/VOMITING Discontinued Medications Generic Name Dose Route Start Last Admin Trade Name Freq PRN Reason Stop Dose Admin Hydromorphone HCl 1 mg 03/21/19 15:51 03/21/19 16:28 Dilaudid 2 Mg Injection IV 03/21/19 15:52 1 mg STAT ONE Administration Hydromorphone HCl Confirm 03/21/19 16:23 Hydromorphone 1 Mg/Ml Ampule Administered 03/21/19 16:24 Dose 1 mg .ROUTE .STK-MED ONE Hydromorphone HCl Confirm 03/21/19 16:26 Hydromorphone 1 Mg/Ml Ampule Administered 03/21/19 16:27 Dose 1 mg .ROUTE .STK-MED ONE Sodium Chloride 1,000 mls @ 250 mls/hr 03/21/19 16:00 03/21/19 16:27 Sodium Chloride 0.9% 1000 Ml IV 04/20/19 15:59 250 mls/hr .Q4H NIKI Administration Vancomycin HCl 1 gm/ Sodium 250 mls @ 167 mls/hr 03/21/19 18:00 03/21/19 17: 44 Chloride IV 04/20/19 17:59 167 mls/hr Q24H NIKI Administration Vancomycin HCl Confirm 03/21/19 17:38 Vancomycin 1gm/ Ns 250ml Administered 03/21/19 17:39 Dose 250 mls @ ud IV .STK-MED ONE Sodium Chloride Confirm 03/21/19 16:24 Sodium Chloride 0.9% 1000 Ml Administered 03/21/19 16:25 Dose 1,000 mls @ ud .ROUTE .STK-MED ONE Morphine Sulfate 4 mg 03/21/19 17:23 03/22/19 13:46 Morphine Sulfate 4 Mg Inj IV 03/26/19 17:22 4 mg Q3H/PRN PRN Administration PAIN Ondansetron HCl 4 mg 03/21/19 15:48 03/21/19 16:27 Zofran 4 Mg/2 Ml Vial IV 03/21/19 15:49 4 mg STAT ONE Administration Ondansetron HCl Confirm 03/21/19 16:20 Zofran 4 Mg/2 Ml Vial Administered 03/21/19 16:21 Dose 4 mg .ROUTE .STK-MED ONE Intake & Output (Last 24 hours) 03/20/19 03/21/19 03/22/19 03/23/19 11:59 11:59 11:59 11:59 Intake Total 3334 5519 Output Total 300 Balance 3334 5219 Weight 100.4 kg Microbiology Results (Last 24 hours) 03/21/19 16:25 Blood Blood Culture Gram Stain - Pending 03/21/19 16:25 Blood Blood Culture - Preliminary NO GROWTH TO DATE 03/21/19 16:15 Blood Blood Culture Gram Stain - Pending 03/21/19 16:15 Blood Blood Culture - Preliminary NO GROWTH TO DATE Laboratory Results (Last 24 hours) 03/22/19 13:45 WBC 20.7 H RBC 5.06 Hgb 15.4 Hct 44.5 MCV 87.9 MCH 30.4 MCHC 34.6 RDW 13.2 Plt Count 241 MPV 12.2 H Orders (Last 24 hours) Category Date Time Status CBC NOW Lab 03/22/19 13:45 Completed CBC Routine Lab 03/23/19 09:35 Received Diclofenac Sodium 50 mg [Voltaren 50 mg] Med 03/22/19 22:00 Active 75 mg PO BID Gabapentin 300 mg [Neurontin 300 mg] Med 03/22/19 16:00 Active 300 mg PO TID Hydrocodone/APAP 5/325 [[place] 5/325 mg] Med 03/22/19 15:23 Active 1 tab PO Q4H PRN PRN Nitroglycerin 0.4 mg Tablet [Nitrostat 0.4 MG Tablet Med 03/22/19 15:45 Active ] 0.4 mg SL UD PRN Ondansetron HCl 4 mg/2 ml [Zofran 4 MG/2 ML VIAL] Med 03/22/19 13:55 Active 4 mg IV Q4H PRN PRN Vancomycin HCl 1 gm Inj [Vancocin 1 gm Vial] 1.75 Med 03/22/19 10:00 Active gm NaCl 0.9% 500 ml [Sodium Chloride 0.9% 500 ML] 500 ml IV Q12HT Patient Care Notes (Last 24 hours) 03/22/19 15:15 (created 03/22/19 17:03) Pharmacy Note by Allyson Joy No further c/o nausea at this time. Initialized on 03/22/19 17:03 - END OF NOTE Code(s): L03.114 - CELLULITIS OF LEFT UPPER LIMB - Discharge Discharge Date: 03/23/19 Disposition: Home, Self-Care Condition: Stable Prescriptions: New Levofloxacin [Levaquin] 500 mg PO DAILY #7 tablet Continue Gabapentin [Neurontin] 300 mg PO TID Diclofenac Sodium [Voltaren] 75 mg PO BID Nitroglycerin 0.4 mg Tablet [Nitrostat 0.4 MG Tablet] 0.4 mg SL UD Follow up with: KRISTIN SUTHERLAND [Primary Care Provider] - 1 Week
[2019-03-23 10:40] LABS: Hematocrit 44.2 % (42-50); Hemoglobin 15.1 gm/dl (12.5-18.0); Mean Cell Volume 88.9 fl (78-100); Mean Corpuscular Hemoglobin 30.4 pg (26-32); Mean Corpuscular Hgb Concent. 34.2 g/dl (32-36); Mean Platelet Volume 12.3 fl (6-9.5); Platelet Count 251 K/mm3 (150-450); Red Blood Count 4.97 M/mm3 (4.1-5.6); Red Cell Distribution Width 13.3 % (11.5-14.0); White Blood Count 16.2 K/mm3 (4.0-10.5)
[2019-03-23 11:21] VITALS: BP 120/68; PULSE 68; O2SAT 97
== END 2019-03-23 11:28 | disposition home or self-care (01) ==
LOC: ED 14:58 → MED SURG 17:59
PROVIDERS: ADMIT General Practice; ATTEND General Practice
DX: L03.114 Cellulitis of left upper limb (principal); Z79.899 Other long term (current) drug therapy; F17.200 Nicotine dependence, unspecified, uncomplicated
CPT/HCPCS: 36000; 36415; 73080; 80048; 85025; 85027; 87040; 96360; 96365; 96374; 96375; 99285; G0378; J1170; J2270; J2405; J2543; J3370; A9270-GY

== ENCOUNTER 2019-04-11 12:27 | Emergency (ER) | payer OTHER ==
[2019-04-11 12:42] VITALS: BP 159/85; PULSE 69; O2SAT 97
--- NOTE | 2019-04-11 12:49 | ERPHSYRPT ---
- History of Present Illness Time Seen by Provider: 04/11/19 12:43 Source: patient Exam Limitations: no limitations Patient Subjective Stated Complaint: patient punched wall week ago and now he is unabel to move his finger in right hand Triage Nursing Assessment: patient is alert and orientedx3, able to ambulate by self, gait is steady, radial pulse steady, cap refill immediate, swelling noted to wrist nad hand , unable to rotate or pronate, bruising noted. Physician History: 48-year-old white male arrives with complaint of pain in his right hand and wrist worse with movement symptoms for one half weeks. Patient states he punched a wall one half weeks ago he states he's been having pain in his right hand and wrist since. Pain is worse with movement. Past medical history includes back pain, back fusion, arthritis, Past surgical history includes multiple left knee surgeries and eventual left knee replacement, back fusion Occurred: other (one and one half weeks ago) Method of Injury: other (punched a wall) Severity of Pain-Max: moderate Severity of Pain-Current: moderate Extremities Pain Location: wrist: right, hand: right Modifying Factors: Improves With: movement Associated Symptoms: none Allergies/Adverse Reactions: No Known Drug Allergies Allergy (Verified 03/21/19 15:16) Home Medications: Diclofenac Sodium [Voltaren] 75 mg PO BID 01/22/19 [History] Gabapentin [Neurontin] 300 mg PO TID 01/22/19 [History] Nitroglycerin 0.4 mg Tablet [Nitrostat 0.4 MG Tablet] 0.4 mg SL UD [History] Hx Tetanus, Diphtheria Vaccination/Date Given: Yes Hx Influenza Vaccination/Date Given: No Hx Pneumococcal Vaccination/Date Given: No Immunizations Up to Date: Yes - Review of Systems Constitutional: No Fever, No Chills Eyes: No Symptoms Ears, Nose, & Throat: No Symptoms Respiratory: No Cough, No Dyspnea Cardiac: No Chest Pain, No Edema, No Syncope Abdominal/Gastrointestinal: No Abdominal Pain, No Nausea, No Vomiting, No Diarrhea Genitourinary Symptoms: No Dysuria Musculoskeletal: Other (right hand and wrist pain) Skin: No Rash Neurological: No Dizziness, No Focal Weakness, No Sensory Changes Psychological: No Symptoms Endocrine: No Symptoms All Other Systems: Reviewed and Negative - Past Medical History Pertinent Past Medical History: Yes Neurological History: No Pertinent History ENT History: No Pertinent History Cardiac History: No Pertinent History Respiratory History: No Pertinent History Endocrine Medical History: No Pertinent History Musculoskeletal History: Arthritis GI Medical History: No Pertinent History History: No Pertinent History Psycho-Social History: No Pertinent History Male Reproductive Disorders: No Pertinent History Other Medical History: BACK PAIN--back fusion - Past Surgical History Past Surgical History: Yes Neuro Surgical History: No Pertinent History Cardiac: No Pertinent History Respiratory: No Pertinent History Gastrointestinal: No Pertinent History Genitourinary: No Pertinent History Musculoskeletal: Orthopedic Surgery Male Surgical History: No Pertinent History Other Surgical History: lt knee x 5 with last being knee replacement. Back fusion - Social History Smoking Status: Current every day smoker How long have you smoked: 20 YEARS Exposure to second hand smoke: No Drug Use: marijuana Patient Lives Alone: No - Nursing Vital Signs Nursing Vital Signs: Initial Vital Signs Temperature 97.5 F 04/11/19 12:30 Pulse Rate 69 04/11/19 12:30 Respiratory Rate 18 04/11/19 12:30 Blood Pressure 159/85 04/11/19 12:30 O2 Sat by Pulse Oximetry 97 04/11/19 12:30 Pain Scale Pain Intensity 6 - Physical Exam General Appearance: alert Eyes, Ears, Nose, Throat Exam: moist mucous membranes Neck Exam: non-tender, supple Cardiovascular/Respiratory Exam: chest non-tender, normal breath sounds, regular rate/rhythm, no respiratory distress Abdominal Exam: non-tender, No guarding Back Exam: normal inspection, No vertebral tenderness Shoulder Exam: normal inspection, non-tender, no evidence of injury, normal ROM Elbow/Forearm Exam: normal inspection, non-tender, no evidence of injury, normal ROM Wrist Exam: No normal inspection (mild tenderness with movement and palpation left wrist) Hand Exam: No normal inspection (edema dorsal right hand overlying the fourth and fifth metacarpals,ffull range of motion right hand and fingers sensation intact right hand and fingers) Neuro/Tendon Exam: normal sensation, normal motor functions Mental Status Exam: alert, oriented x 3, cooperative Skin Exam: normal color, warm, dry SpO2 Interpretation: normal (97%) SpO2: 97 - Course Nursing assessment & vital signs reviewed: Yes - Radiology Exams Right Hand X-ray Interpretation: Discussed w/ radiologist (x-ray right hand: Impression comminuted displaced fracture base of the fifth metacarpal with intra-articular extension and soft tissue swelling. Mild second/third/fifth metacarpal phalangeal degenerative changes. No other bony, articular, or soft tissue abnormalities) Right Wrist X-ray Interpretation: Discussed w/ radiologist (x-ray right wrist: Impression comminuted displaced fracture base of the fifth metacarpal with intra-articular extension and soft tissue swelling. No other bony, articular, or soft tissue abnormalities.) Ordered Tests: Active Orders 24 hr Category Date Time Status HAND (MINIMUM 3 VIEWS) Stat Exams 04/11/19 12:42 Completed WRIST (MIN 3 VIEWS) Stat Exams 04/11/19 12:42 Completed - Progress Progress: improved Progress Note: 04/11/19 12:47 This is a 48-year-old white male arrives with complaint of pain in his right hand and wrist symptoms going on since 1-1/2 weeks. He states he punched a wall prior to the onset of the pain. On physical examination patient has pain on the distal right wrist with palpation also some pain on the ulnar aspect of the right wrist with movement. Patient also has a mild edema in his dorsal right hand with tenderness with palpation of the right dorsal hand. He has full range of motion to the right fingers good capillary refill to all right finger sensation intact to his right fingers right radial and ulnar pulses are intact. Patient states he has Voltarin at home. Will go ahead and obtain an x-ray of the patient's right hand and wrist. 04/11/19 13:26 Patient did not want any pain medications here because he is driving he is already on Volterin this patient's x-ray right hand and wrist remarkable for a comminuted displaced fracture of the base of the fifth metacarpal with intra- articular extension and soft tissue swelling. Will go ahead and place a OCL splint on the patient's right hand. Will write for Amity for pain for the patient. The patient states he will followup with Dr. Purvis. He denies any problems with narcotics. Inspect has been queried. - Departure Departure Disposition: Home Clinical Impression: Fracture of fifth metacarpal bone of right hand Qualifiers: Encounter type: initial encounter Fracture type: closed Metacarpal location: base Fracture alignment: nondisplaced Qualified Code(s): S62.346A - Nondisplaced fracture of base of fifth metacarpal bone, right hand, initial encounter for closed fracture Condition: Fair Critical Care Time: No Referrals: KRISTIN SUTHERLAND [Primary Care Provider] - Additional Instructions: Return home. Ice and elevate right hand 24-[address] Purvis. Amity as prescribed. Return for acute distress severe symptoms or for any problems. Prescriptions: Hydrocodone/APAP 5-325 Tab^^^ [Amity 5-325 Tablet^^^] 1 each PO Q4HPRN PRN #12 tablet MDD 6 PRN Reason: right hand pain
--- NOTE | 2019-04-11 13:24 | XRAY ---
Indication: Pain following punching injury 1.5 weeks ago. Comparison: None 3 views of the right hand demonstrates comminuted displaced fracture base of the 5th metacarpal with intra-articular extension and soft tissue swelling. Mild 2nd/3rd/5th MCP degenerative changes. No other bony, articular, or soft tissue abnormalities.
--- NOTE | 2019-04-11 13:24 | XRAY ---
Indication: Pain following punching injury 1.5 weeks ago. Comparison: None 3 views of the right wrist demonstrates comminuted displaced fracture base of the 5th metacarpal with intra-articular extension and soft tissue swelling. No other bony, articular, or soft tissue abnormalities.
== END 2019-04-11 13:50 | disposition home or self-care (01) ==
LOC: ED 12:27
DX: S62.346A Nondisplaced fracture of base of fifth metacarpal bone, right hand, initial encounter for closed fracture (principal); W22.01XA Walked into wall, initial encounter; Z79.899 Other long term (current) drug therapy
CPT/HCPCS: 29126; 73110; 73130; 99284

== ENCOUNTER 2021-04-12 07:39 | Emergency (ER) | payer MEDICARE ==
[2021-04-12] MEDS ORDERED: TORAdol 30 mg Injection ONE (07:58)
[2021-04-12] MEDS ORDERED: Zofran 4 MG/2 ML VIAL ONE (07:58)
[2021-04-12] MEDS ORDERED: Sodium Chloride 0.9% 1000 ML 1,000 ML ONE (07:58)
[2021-04-12] MEDS: Sodium Chloride 0.9% 1000 ML 1,000 ML IV STA (08:03)
[2021-04-12] MEDS: Zofran 4 MG/2 ML VIAL IV ONE (08:03)
[2021-04-12] MEDS: TORAdol 30 mg Injection IV ONE (08:03)
[2021-04-12 08:08] LABS: Absolute Neutrophil Ct (ANC) 7.51 (1.4-6.9); BASOPHIL % 0.5 % (0.0-0.4); Basophil (Absolute #) 0.07 (0-0.4); Eosinophil % 4.7 % (0.00-5.0); Eosinophil (Absolute #) 0.64 (0-0.5); Hematocrit 48.1 % (42-50); Lymphocyte (Absolute #) 3.86 (1.0-4.6); Lymphocytes % 28.6 % (24.0-44.0); Mean Cell Volume 87.9 fl (78-100); Mean Corpuscular Hemoglobin 29.3 pg (26-32); Mean Corpuscular Hgb Concent. 33.3 g/dl (32-36); Mean Platelet Volume 11.6 fl (7.5-11.0); Monocytes % 10.4 % (0.0-12.0); Neutrophil % 55.8 % (36.0-66.0); Platelet Count 331 K/mm3 (150-450); Red Blood Count 5.47 M/mm3 (4.1-5.6); Red Cell Distribution Width 13.1 % (11.5-14.0); White Blood Count 13.5 K/mm3 (4.0-10.5)
[2021-04-12 08:22] LABS: ALKALINE PHOSPHATASE 121 U/L (38-126); ANION GAP 15.6 MEQ/L (5-15); BLOOD UREA NITROGEN 16 mg/dL (9-20); CHLORIDE 105 mmol/L (98-107); Calcium 9.3 mg/dL (8.4-10.2); Carbon Dioxide 22 mmol/L (22-30); Creatinine 1 1.07 mg/dL (0.66-1.25); EST GLOMERULAR FILTRATION RATE > 60.0 ML/MIN; Glucose 84 mg/dL (74-106); Potassium 3.9 mmol/L (3.5-5.1); SGOT/AST 42 U/L (17-59); SGPT/ALT 22 U/L (0-50); SODIUM 139 mmol/L (137-145)
--- NOTE | 2021-04-12 08:50 | ERPHSYRPT ---
- History of Present Illness Time Seen by Provider: 04/12/21 08:15 Historian: patient Exam Limitations: no limitations Patient Subjective Stated Complaint: pt here for pain to lower abd and left flank since sunday, with nausea, he also states he as not had a bm for a week, Triage Nursing Assessment: pt alert, resp easy, face mask in place, skin w/d/p. abd soft, no edema noted Physician History: Patient is a 50-year-old male presents to our emergency department for evaluation of left-sided flank pain. Pain started approximately 4 days ago. Pain has been tolerable. However patient states he urinated this morning the pain became acutely worse. Pain described as an ache. Pain tends to radiate towards his back. Patient has a history of kidney stones and says that his symptoms are similar. No trauma. No fever. No nausea vomiting or diaphoresis. Patient states he has been constipated for approximately 1 week. Patient also states that it appears that he has been experiencing some hematuria in his urine. No chest pain. No shortness of breath. Patient otherwise voices no other complaints or concerns at this time. Timing/Duration: day(s) (4 days) Activities at Onset: other (Patient was urinating when pain started.) Quality: aching Abdominal Pain Onset Location: flank (Left flank) Pain Radiation: back Severity of Pain-Max: moderate Severity of Pain-Current: mild Modifying Factors: Improves With: nothing Associated Symptoms: nausea Previous symptoms: same symptoms as today Allergies/Adverse Reactions: No Known Drug Allergies Allergy (Verified 04/12/21 08:17) Home Medications: Diclofenac Sodium [Voltaren] 75 mg PO BID 01/22/19 [History] Gabapentin [Neurontin] 300 mg PO TID 01/22/19 [History] Nitroglycerin 0.4 mg Tablet [Nitrostat 0.4 MG Tablet] 0.4 mg SL UD 01/22/19 [History] Hx Tetanus, Diphtheria Vaccination/Date Given: Yes Hx Influenza Vaccination/Date Given: No Hx Pneumococcal Vaccination/Date Given: No Immunizations Up to Date: Yes Travel Risk - International Travel Have you traveled outside of the country in past 3 weeks: No - Coronavirus Screening Are you exhibiting any of the following symptoms?: No Close contact with a COVID-19 positive Pt in past 14-21 Days: No - Vaccine Status Have you recieved a Covid-19 vaccination: No - Review of Systems Constitutional: No Symptoms, No Fever, No Chills Eyes: No Symptoms Ears, Nose, & Throat: No Symptoms Respiratory: No Symptoms, No Cough, No Dyspnea Cardiac: No Symptoms, No Chest Pain, No Edema, No Syncope Abdominal/Gastrointestinal: No Symptoms, No Abdominal Pain, No Nausea, No Vomiting, No Diarrhea Genitourinary Symptoms: No Symptoms, No Dysuria Musculoskeletal: No Symptoms, No Back Pain, No Neck Pain Skin: No Symptoms, No Rash Neurological: No Symptoms, No Dizziness, No Focal Weakness, No Sensory Changes Psychological: No Symptoms Endocrine: No Symptoms Hematologic/Lymphatic: No Symptoms Immunological/Allergic: No Symptoms All Other Systems: Reviewed and Negative - Past Medical History Pertinent Past Medical History: Yes Neurological History: No Pertinent History ENT History: No Pertinent History Cardiac History: No Pertinent History Respiratory History: No Pertinent History Endocrine Medical History: No Pertinent History Musculoskeletal History: Arthritis GI Medical History: No Pertinent History History: No Pertinent History Psycho-Social History: No Pertinent History Male Reproductive Disorders: No Pertinent History Other Medical History: BACK PAIN--back fusion - Past Surgical History Past Surgical History: Yes Neuro Surgical History: No Pertinent History Cardiac: No Pertinent History Respiratory: No Pertinent History Gastrointestinal: No Pertinent History Genitourinary: No Pertinent History Musculoskeletal: Orthopedic Surgery Male Surgical History: No Pertinent History Other Surgical History: lt knee x 5 with last being knee replacement. Back fusion - Social History Smoking Status: Current every day smoker How long have you smoked: 20 YEARS Exposure to second hand smoke: No Drug Use: marijuana Patient Lives Alone: No - Nursing Vital Signs Nursing Vital Signs: Initial Vital Signs Temperature 97.2 F 04/12/21 08:11 Pulse Rate 55 L 04/12/21 08:11 Respiratory Rate 18 04/12/21 08:11 Blood Pressure 156/100 04/12/21 08:11 O2 Sat by Pulse Oximetry 98 04/12/21 08:11 Pain Scale Pain Intensity 8 - Physical Exam General Appearance: no apparent distress, alert Eye Exam: PERRL/EOMI, eyes nml inspection Ears, Nose, Throat Exam: normal ENT inspection, pharynx normal, moist mucous membranes Neck Exam: normal inspection, non-tender, supple, full range of motion Respiratory Exam: normal breath sounds, lungs clear, No respiratory distress Cardiovascular Exam: regular rate/rhythm, normal heart sounds Gastrointestinal/Abdomen Exam: soft, No tenderness, No mass Male Genitalia Exam: other (Patient denies testicular pain and tenderness.) Back Exam: normal inspection, normal range of motion, No CVA tenderness, No vertebral tenderness Extremity Exam: normal inspection, normal range of motion, pelvis stable Neurologic Exam: alert, oriented x 3, cooperative, normal mood/affect, No motor deficits Skin Exam: normal color, warm, dry Lymphatic Exam: No adenopathy SpO2 Interpretation: normal SpO2: 98 O2 Delivery: Room Air - Course Nursing assessment & vital signs reviewed: Yes Ordered Tests: Active Orders 24 hr Category Date Time Status IV Insertion STAT Care 04/12/21 07:55 Active ABDOMEN AND PELVIS W/0 CONTRAS [CT] Stat Exams 04/12/21 07:55 Completed CBC W DIFF Stat Lab 04/12/21 07:55 Completed CMP Stat Lab 04/12/21 07:55 Completed CULTURE,URINE Stat Lab 04/12/21 09:21 Received UA W/RFX UR CULTURE Stat Lab 04/12/21 09:21 Completed Medication Summary Discontinued Medications Generic Name Dose Route Start Last Admin Trade Name Dustinq PRN Reason Stop Dose Admin Sodium Chloride 1,000 mls @ 999 mls/hr 04/12/21 07:55 04/12/21 09:31 Sodium Chloride 0.9% 1000 Ml IV 04/12/21 08:55 Infused .Q1H1M STA Infusion Sodium Chloride Confirm 04/12/21 07:58 Sodium Chloride 0.9% 1000 Ml Administered 04/12/21 07:59 Dose 1,000 mls @ ud .ROUTE .STK-MED ONE Ketorolac Tromethamine 30 mg 04/12/21 07:55 04/12/21 08:03 Toradol 30 Mg Injection IV 04/12/21 07:56 30 mg STAT ONE Administration Ketorolac Tromethamine Confirm 04/12/21 07:58 Toradol 30 Mg Injection Administered 04/12/21 07:59 Dose 30 mg .ROUTE .STK-MED ONE Morphine Sulfate 4 mg 04/12/21 09:52 04/12/21 09:56 Morphine Sulfate 4 Mg Inj IV 04/12/21 09:53 4 mg STAT ONE Administration Morphine Sulfate Confirm 04/12/21 09:55 Morphine Sulfate 4 Mg Inj Administered 04/12/21 09:56 Dose 4 mg .ROUTE .STK-MED ONE Morphine Sulfate 4 mg 04/12/21 10:53 04/12/21 11:05 Morphine Sulfate 4 Mg Inj IV 04/12/21 10:54 4 mg STAT ONE Administration Morphine Sulfate Confirm 04/12/21 11:02 Morphine Sulfate 4 Mg Inj Administered 04/12/21 11:03 Dose 4 mg .ROUTE .STK-MED ONE Ondansetron HCl 4 mg 04/12/21 07:57 04/12/21 08:03 Zofran 4 Mg/2 Ml Vial IV 04/12/21 07:58 4 mg STAT ONE Administration Ondansetron HCl Confirm 04/12/21 07:58 Zofran 4 Mg/2 Ml Vial Administered 04/12/21 07:59 Dose 4 mg .ROUTE .STK-MED ONE Lab/Rad Data: Laboratory Result Diagrams 04/12/21 07:55 04/12/21 07:55 Laboratory Results 04/12/21 04/12/21 04/12/21 Range/Units 09:21 07:55 07:55 WBC 13.5 H (4.0-10.5) K/mm3 RBC 5.47 (4.1-5.6) M/mm3 Hgb 16.0 (12.5-18.0) gm/dl Hct 48.1 (42-50) % MCV 87.9 (78-100) fl MCH 29.3 (26-32) pg MCHC 33.3 (32-36) g/dl RDW 13.1 (11.5-14.0) % Plt Count 331 (150-450) K/mm3 MPV 11.6 H (7.5-11.0) fl Gran % 55.8 (36.0-66.0) % Eos # (Auto) 0.64 H (0-0.5) Absolute Lymphs (auto) 3.86 (1.0-4.6) Absolute Monos (auto) 1.40 H (0.0-1.3) Lymphocytes % 28.6 (24.0-44.0) % Monocytes % 10.4 (0.0-12.0) % Eosinophils % 4.7 (0.00-5.0) % Basophils % 0.5 (0.0-0.4) % Absolute Granulocytes 7.51 H (1.4-6.9) Basophils # 0.07 (0-0.4) Sodium 139 (137-145) mmol/L Potassium 3.9 (3.5-5.1) mmol/L Chloride 105 (98-107) mmol/L Carbon Dioxide 22 (22-30) mmol/L Anion Gap 15.6 H (5-15) MEQ/L BUN 16 (9-20) mg/dL Creatinine 1.07 (0.66-1.25) mg/dL Estimated GFR > 60.0 ML/MIN Glucose 84 (74-106) mg/dL Calcium 9.3 (8.4-10.2) mg/dL Total Bilirubin 0.20 (0.2-1.3) mg/dL AST 42 (17-59) U/L ALT 22 (0-50) U/L Alkaline Phosphatase 121 (38-126) U/L Serum Total Protein 7.0 (6.3-8.2) g/dL Albumin 4.0 (3.5-5.0) g/dL Urine Color YELLOW (YELLOW) Urine Appearance SLIGHTLY CLOUDY (CLEAR) Urine pH 5.0 (5-6) Ur Specific Allgood 1.017 (1.005-1.025) Urine Protein 30 (Negative) Urine Ketones NEGATIVE (NEGATIVE) Urine Blood LARGE (0-5) Ronny/ul Urine Nitrite NEGATIVE (NEGATIVE) Urine Bilirubin NEGATIVE (NEGATIVE) Urine Urobilinogen 2 (0-1) mg/dL Ur Leukocyte Esterase NEGATIVE (NEGATIVE) Urine WBC (Auto) 6-10 (0-5) /HPF Urine RBC (Auto) >101 (0-2) /HPF U Epithel Cells (Auto) FEW (FEW) /HPF Urine Bacteria (Auto) FEW (NEGATIVE) /HPF Urine Mucus (Auto) SLIGHT (NEGATIVE) /HPF Urine Culture Reflexed YES (NO) Urine Glucose NEGATIVE (NEGATIVE) mg/dL - Progress Progress: improved Progress Note: Reassessed. Pain improved. Patient has bilateral ureteral lithiasis. Left renal edema with hydronephrosis. We are attempting to contact urology at this time. 04/12/21 09:15 04/12/21 11:35 Patient decided to have his significant other drive him to [facility] to meet with Dr. Stephen alegria for placement of renal stents. Counseled pt/family regarding: lab results, diagnosis - Departure Departure Disposition: Transfer Clinical Impression: Constipation, Ureterolithiasis, renal edema, Nephrolithiasis, Aortic calcification Condition: Stable Critical Care Time: No Referrals: KRISTIN SUTHERLAND [Primary Care Provider] - Additional Instructions: Discharge/Care Plan ROHAN COOPER was seen on 04/12/21 in the Emergency Room. The patient was counseled regarding Diagnosis,Lab results, Imaging studies, need for follow up and when to return to the Emergency Room. Prescriptions given: Discharge Note I have spoken with the patient and/or caregivers. I have explained the patient's condition, diagnosis and treatment plan based on the information available to me at this time. I have answered the patient's and/or caregiver's questions and addressed any concerns. The patient and/or caregivers have as good understanding of the patient's diagnosis, condition and treatment plan as can be expected at this point. The vital signs have been stable. The patient's condition is stable and appropriate for discharge from the emergency department. The patient will pursue further outpatient evaluation with the primary care physician or other designated or consulting physician as outlined in the discharge instructions. The patient and/or caregivers are agreeable to this plan of care and follow-up instructions have been explained in detail. The patient and/or caregivers have received these instruction. The patient/and or caregivers are aware that any significant change in condition or worsening of symptoms should prompt an immediate return to this or the closest emergency department or call 911.
--- NOTE | 2021-04-12 09:07 | XRAY ---
Indication: Urolithiasis. Multiple contiguous axial images obtained through the abdomen and pelvis without contrast. Comparison: October 13, 2017 Lung bases again demonstrates minimal dependent atelectasis without infiltrate or effusion. Heart is not enlarged. Noncontrasted stomach and bowel loops nonobstructed again with normal appendix. There is now mild/moderate diffuse scattered colonic fecal debris throughout. No free fluid/air. New 5-6 mm UPJ calculus bilaterally. Left kidney is also mildly edematous with mild hydronephrosis favoring partial obstructive uropathy. No perinephric fluid. There remains additional bilateral renal micro-calculi. Remaining liver, gallbladder, pancreas, spleen, adrenal glands, and urinary bladder are unremarkable for noncontrast exam. Again mild scattered aortoiliac calcifications without AAA. Osseous structures intact again with L3-L4 posterior fusion surgery with intact spinal hardware. Impression: 1. New 5-6 mm bilateral UPJ calculus. Left renal edema and hydronephrosis consistent with obstructive uropathy. 2. New diffuse fecal stasis. 3. Again incidental bilateral renal micro-calculi and L3-L4 fusion.
[2021-04-12 09:26] LABS: Appearance SLIGHTLY CLOUDY (CLEAR); Bilirubin NEGATIVE (NEGATIVE); Blood LARGE Ery/ul (0-5); Glucose NEGATIVE (NEGATIVE); Ketones NEGATIVE (NEGATIVE); Leukocyte Esterase NEGATIVE (NEGATIVE); Mucus SLIGHT /HPF (NEGATIVE); Nitrite NEGATIVE (NEGATIVE); Protein,Urine Dip 30 (Negative); Specific Gravity 1.017 (1.005-1.025); Urobilinogen 2 mg/dL (0-1)
[2021-04-12 09:27] LABS: Bacteria FEW /HPF (NEGATIVE); Epithelial Cells FEW /HPF (FEW); RBC >101 /HPF (0-2)
[2021-04-12] MEDS ORDERED: MORPHINE SULFATE 4 MG INJ ONE ×2 (09:55→11:02)
[2021-04-12] MEDS: MORPHINE SULFATE 4 MG INJ IV ONE ×2 (09:56→11:05)
[2021-04-12 11:16] VITALS: BP 169/106; PULSE 50; O2SAT 98
== END 2021-04-12 11:46 | disposition short-term general hospital (02) ==
LOC: ED 07:39
DX: K59.00 Constipation, unspecified (principal); N20.1 Calculus of ureter; N20.0 Calculus of kidney; I70.0 Atherosclerosis of aorta
CPT/HCPCS: 36000; 36415; 74176; 80053; 81001; 85025; 87086; 96360; 96374; 96375; 96376; 99284; J1885; J2270; J2405

== ENCOUNTER 2021-04-22 20:37 | Emergency (ER) | payer MEDICARE ==
[2021-04-22] MEDS ORDERED: TORAdol 30 mg Injection IV ONE (20:48)
[2021-04-22] MEDS ORDERED: Sodium Chloride 0.9% 1000 ML 1,000 ML IV STA (20:48)
[2021-04-22] MEDS ORDERED: Hydromorphone 1 mg/ml Injection IV ONE ×2 (20:48→22:14)
--- NOTE | 2021-04-22 20:48 | ERPHSYRPT ---
- History of Present Illness Time Seen by Provider: 04/22/21 20:44 Historian: patient, EMS Exam Limitations: clinical condition Physician History: This is a 50-year-old white male who presents with acute right flank and right groin pain that came on suddenly prior to arrival. Last week, the patient was transferred from this emergency department to Dr. Mitchell, urologist at [facility]. Patient underwent emergent bilateral ureteral stenting for bilateral ureterolithiasis. Patient underwent a lithotripsy earlier today by Dr. Jones per patient report. Just prior to his arrival he had sudden onset of severe pain in his right flank. The stents were removed today as well. Patient was brought in by EMS and patient received 100 mcg of intravenous fentanyl. Timing/Duration: today Activities at Onset: none Quality: sharpness, stabbing Abdominal Pain Onset Location: flank (Right flank) Pain Radiation: groin (Right groin) Severity of Pain-Max: moderate Severity of Pain-Current: moderate Associated Symptoms: denies symptoms Previous symptoms: same symptoms as today, recently seen, recent hospitalization, recently treated Allergies/Adverse Reactions: No Known Drug Allergies Allergy (Verified 04/12/21 08:17) Home Medications: Diclofenac Sodium [Voltaren] 75 mg PO BID 01/22/19 [History] Gabapentin [Neurontin] 300 mg PO TID 01/22/19 [History] Nitroglycerin 0.4 mg Tablet [Nitrostat 0.4 MG Tablet] 0.4 mg SL UD 01/22/19 [History] Hx Tetanus, Diphtheria Vaccination/Date Given: Yes Hx Influenza Vaccination/Date Given: No Hx Pneumococcal Vaccination/Date Given: No Travel Risk - International Travel Have you traveled outside of the country in past 3 weeks: No - Coronavirus Screening Are you exhibiting any of the following symptoms?: No Close contact with a COVID-19 positive Pt in past 14-21 Days: No - Vaccine Status Have you recieved a Covid-19 vaccination: No - Review of Systems Constitutional: No Symptoms Eyes: No Symptoms Ears, Nose, & Throat: No Symptoms Respiratory: No Symptoms Cardiac: No Symptoms Abdominal/Gastrointestinal: No Symptoms Genitourinary Symptoms: Flank Pain (Right flank pain) Musculoskeletal: No Symptoms Skin: No Symptoms Neurological: No Symptoms Psychological: No Symptoms Endocrine: No Symptoms Hematologic/Lymphatic: No Symptoms Immunological/Allergic: No Symptoms All Other Systems: Reviewed and Negative - Past Medical History Pertinent Past Medical History: Yes Neurological History: No Pertinent History ENT History: No Pertinent History Cardiac History: No Pertinent History Respiratory History: No Pertinent History Endocrine Medical History: No Pertinent History Musculoskeletal History: Arthritis GI Medical History: No Pertinent History History: No Pertinent History Psycho-Social History: No Pertinent History Male Reproductive Disorders: No Pertinent History Other Medical History: BACK PAIN--back fusion - Past Surgical History Past Surgical History: Yes Neuro Surgical History: No Pertinent History Cardiac: No Pertinent History Respiratory: No Pertinent History Gastrointestinal: No Pertinent History Genitourinary: No Pertinent History Musculoskeletal: Orthopedic Surgery Male Surgical History: No Pertinent History Other Surgical History: lt knee x 5 with last being knee replacement. Back fusion - Social History Smoking Status: Current every day smoker How long have you smoked: 20 YEARS Exposure to second hand smoke: No Drug Use: marijuana Patient Lives Alone: No - Nursing Vital Signs Nursing Vital Signs: Initial Vital Signs Pulse Rate 91 H 04/22/21 20:39 Respiratory Rate 22 04/22/21 20:39 Blood Pressure 123/100 04/22/21 20:39 O2 Sat by Pulse Oximetry 96 04/22/21 20:39 Pain Scale Pain Intensity 8 - Physical Exam General Appearance: moderate distress, alert, anxiety Eye Exam: PERRL/EOMI, eyes nml inspection Ears, Nose, Throat Exam: normal ENT inspection, moist mucous membranes Neck Exam: normal inspection, non-tender, supple, full range of motion Respiratory Exam: normal breath sounds, lungs clear, airway intact, No chest tenderness, No respiratory distress Cardiovascular Exam: regular rate/rhythm, normal heart sounds, normal peripheral pulses Gastrointestinal/Abdomen Exam: soft, normal bowel sounds, No tenderness Back Exam: normal inspection, normal range of motion, CVA tenderness (Right), No vertebral tenderness Extremity Exam: normal inspection, normal range of motion, pelvis stable Neurologic Exam: alert, oriented x 3, cooperative, business risk analyst II-XII nml as tested, normal mood/affect Skin Exam: normal color, warm, dry Lymphatic Exam: No adenopathy SpO2 Interpretation: normal O2 Delivery: Room Air - Course Nursing assessment & vital signs reviewed: Yes Ordered Tests: Active Orders 24 hr Category Date Time Status IV Insertion STAT Care 04/22/21 20:48 Active ABDOMEN AND PELVIS W/0 CONTRAS [CT] Stat Exams 04/22/21 20:49 Taken AMYLASE Stat Lab 04/22/21 21:00 Completed CBC W DIFF Stat Lab 04/22/21 21:00 Completed CMP Stat Lab 04/22/21 21:00 Completed LIPASE Stat Lab 04/22/21 21:00 Completed Manual Differential NC Stat Lab 04/22/21 21:00 Completed UA W/RFX UR CULTURE Stat Lab 04/22/21 21:09 Received Medication Summary Generic Name Dose Route Start Last Admin Trade Name Ragini PRN Reason Stop Dose Admin Levofloxacin/Dextrose 500 mg in 100 mls @ 100 mls/hr 04/22/21 21:26 04/22/21 21:50 Levofloxacin 500mg/100ml D5w IV 04/22/21 22:25 100 mls/hr STAT STA 100 mls/hr Administration Discontinued Medications Generic Name Dose Route Start Last Admin Trade Name Dustinq PRN Reason Stop Dose Admin Hydromorphone HCl 1 mg 04/22/21 20:48 04/22/21 20:57 Hydromorphone 1 Mg/Ml Injection IV 04/22/21 20:49 1 mg STAT ONE Administration Hydromorphone HCl Confirm 04/22/21 20:53 Hydromorphone 1 Mg/Ml Injection Administered 04/22/21 20:54 Dose 1 mg .ROUTE .STK-MED ONE Sodium Chloride 1,000 mls @ 999 mls/hr 04/22/21 20:48 04/22/21 20:57 Sodium Chloride 0.9% 1000 Ml IV 04/22/21 21:48 999 mls/hr .Q1H1M STA Administration Sodium Chloride Confirm 04/22/21 20:53 Sodium Chloride 0.9% 1000 Ml Administered 04/22/21 20:54 Dose 1,000 mls @ ud .ROUTE .STK-MED ONE Levofloxacin/Dextrose Confirm 04/22/21 21:49 Levofloxacin 500mg/100ml D5w Administered 04/22/21 21:50 Dose 500 mg in 100 mls @ ud IV .STK-MED ONE Ketorolac Tromethamine 30 mg 04/22/21 20:48 04/22/21 20:57 Toradol 30 Mg Injection IV 04/22/21 20:49 30 mg STAT ONE Administration Ketorolac Tromethamine Confirm 04/22/21 20:53 Toradol 30 Mg Injection Administered 04/22/21 20:54 Dose 30 mg .ROUTE .STK-MED ONE Lorazepam 1 mg 04/22/21 21:23 04/22/21 21:33 Ativan 2 Mg/1 Ml Vial IV 04/22/21 21:24 1 mg STAT ONE Administration Lorazepam Confirm 04/22/21 21:32 Ativan 2 Mg/1 Ml Vial Administered 04/22/21 21:33 Dose 2 mg .ROUTE .STK-MED ONE Lab/Rad Data: Laboratory Result Diagrams 04/22/21 21:00 04/22/21 21:00 Laboratory Results 04/22/21 04/22/21 Range/Units 21:00 21:00 WBC 37.8 H* (4.0-10.5) K/mm3 RBC 4.54 (4.1-5.6) M/mm3 Hgb 13.4 (12.5-18.0) gm/dl Hct 40.8 L (42-50) % MCV 89.9 (78-100) fl MCH 29.5 (26-32) pg MCHC 32.8 (32-36) g/dl RDW 12.9 (11.5-14.0) % Plt Count 482 H (150-450) K/mm3 MPV 10.8 (7.5-11.0) fl Segmented Neutrophils 85 H (36.-66.) % Band Neutrophils 3 H (0.0-2.0) % Lymphocytes (Manual) 6 L (24-44) % Monocytes (Manual) 6 (0.0-12.0) % Platelet Estimate NORMAL (NORMAL) RBC Morphology NORMAL Sodium 137 (137-145) mmol/L Potassium 4.6 (3.5-5.1) mmol/L Chloride 103 (98-107) mmol/L Carbon Dioxide 28 (22-30) mmol/L Anion Gap 10.5 (5-15) MEQ/L BUN 17 (9-20) mg/dL Creatinine 1.09 (0.66-1.25) mg/dL Estimated GFR > 60.0 ML/MIN Glucose 159 H (74-106) mg/dL Calcium 8.6 (8.4-10.2) mg/dL Total Bilirubin 0.20 (0.2-1.3) mg/dL AST 21 (17-59) U/L ALT 17 (0-50) U/L Alkaline Phosphatase 97 (38-126) U/L Serum Total Protein 6.0 L (6.3-8.2) g/dL Albumin 3.3 L (3.5-5.0) g/dL Amylase 60 (30-110) U/L Lipase 67 (23-300) U/L - Progress Progress: improved, pain not gone completely, re-examined Progress Note: 04/22/21 21:58 CAT scan of the abdomen and pelvis without contrast shows an interval development of extensive right renal and perirenal hemorrhage measuring up to 14 cm x 11 cm x 18 cm. The hemorrhage mildly extends into the pelvis. 04/22/21 22:12 Decision making: I spoke with Dr. Mar who is the emergency room physician at [facility] in [facility]. He actually reviewed today's lithotripsy report. The patient underwent lithotripsy procedure by Dr. Mitchell and not Dr. Jones. I reviewed the patient history, vital signs, physical findings and results of laboratory work-up and the CAT scan of the abdomen pelvis. Dr. Mar accepts the patient in transfer. Counseled pt/family regarding: lab results, diagnosis, rad results - Departure Departure Disposition: Transfer Clinical Impression: Postoperative hemorrhage Condition: Stable Critical Care Time: No Referrals: KRISTIN SUTHERLAND [Primary Care Provider] -
[2021-04-22] MEDS ORDERED: Hydromorphone 1 mg/ml Injection ONE ×2 (20:53→22:19)
[2021-04-22] MEDS ORDERED: TORAdol 30 mg Injection ONE (20:53)
[2021-04-22] MEDS ORDERED: Sodium Chloride 0.9% 1000 ML 1,000 ML ONE (20:53)
[2021-04-22 21:06] LABS: Hematocrit 40.8 % (42-50); Hemoglobin 13.4 gm/dl (12.5-18.0); Mean Cell Volume 89.9 fl (78-100); Mean Corpuscular Hemoglobin 29.5 pg (26-32); Mean Corpuscular Hgb Concent. 32.8 g/dl (32-36); Mean Platelet Volume 10.8 fl (7.5-11.0); Platelet Count 482 K/mm3 (150-450); Red Blood Count 4.54 M/mm3 (4.1-5.6); Red Cell Distribution Width 12.9 % (11.5-14.0)
[2021-04-22 21:16] LABS: ALBUMIN 3.3 g/dL (3.5-5.0); ALKALINE PHOSPHATASE 97 U/L (38-126); AMYLASE 60 U/L (30-110); ANION GAP 10.5 MEQ/L (5-15); BLOOD UREA NITROGEN 17 mg/dL (9-20); CHLORIDE 103 mmol/L (98-107); Calcium 8.6 mg/dL (8.4-10.2); Carbon Dioxide 28 mmol/L (22-30); Creatinine 1 1.09 mg/dL (0.66-1.25); EST GLOMERULAR FILTRATION RATE > 60.0 ML/MIN; Glucose 159 mg/dL (74-106); LIPASE 67 U/L (23-300); Potassium 4.6 mmol/L (3.5-5.1); SGOT/AST 21 U/L (17-59); SGPT/ALT 17 U/L (0-50); SODIUM 137 mmol/L (137-145)
[2021-04-22 21:17] LABS: White Blood Count 37.8 K/mm3 (4.0-10.5)
[2021-04-22] MEDS ORDERED: Ativan 2 MG/1 ML VIAL IV ONE (21:23)
[2021-04-22] MEDS ORDERED: Levofloxacin 500MG/100ML D5W 500 MG/100 ML BAG IV STA (21:26)
[2021-04-22] MEDS ORDERED: Ativan 2 MG/1 ML VIAL ONE (21:32)
[2021-04-22] MEDS ORDERED: Levofloxacin 500MG/100ML D5W 500 MG/100 ML BAG IV ONE (21:49)
[2021-04-22 22:02] LABS: BAND 3 % (0.0-2.0); Lymphocytes 6 % (24-44); Monocyte 6 % (0.0-12.0); Neutrophils 85 % (36.-66.); Platelet Estimate NORMAL (NORMAL); Total Cells Counted 100
[2021-04-22 22:06] VITALS: BP 122/95; PULSE 111; O2SAT 98
[2021-04-22 22:10] LABS: Appearance CLOUDY (CLEAR); Bacteria RARE /HPF (NEGATIVE); Bilirubin NEGATIVE (NEGATIVE); Blood LARGE Ery/ul (0-5); Glucose NEGATIVE (NEGATIVE); Ketones NEGATIVE (NEGATIVE); Leukocyte Esterase TRACE (NEGATIVE); Nitrite NEGATIVE (NEGATIVE); Protein,Urine Dip >=500 (Negative); Urobilinogen NEGATIVE mg/dL (0-1)
[2021-04-22 22:17] LABS: RBC >101 /HPF (0-2)
--- NOTE | 2021-04-23 07:04 | XRAY ---
Indication: Right flank pain. Status post bilateral lithotripsy with bilateral ureteral stent removal earlier today. Multiple contiguous axial images obtained through the abdomen and pelvis without contrast using renal stone protocol. Comparison: April 12, 2021. Study is degraded by respiration artifact throughout. Lung bases again demonstrates bilateral dependent atelectasis with new posterior right lower lobe subsegmental atelectasis. Heart is not enlarged. There remains a few bilateral renal micro-calculi. Proximal right ureter again demonstrates a 5-6 mm calculus without hydronephrosis. Right kidney demonstrates new large focus of perirenal hemorrhage measuring 14 x 11 x 18 cm with perinephric stranding. No walled off fluid collection or free air. Left kidney negative for obstructive uropathy. Urinary bladder demonstrates new Wang balloon catheter. Stomach is markedly fluid distended either from recent ingestion versus gastroparesis versus outlet obstruction. Noncontrasted bowel loops appear nonobstructed. Remaining liver, gallbladder, pancreas, spleen, and adrenal glands unremarkable for noncontrast exam. Stable mild aortoiliac calcifications without AAA. Osseous structures intact again with L3-L4 posterior fusion surgery. Impression: 1. Respiration artifact. 2. New large right perirenal hemorrhage. 3. Again bilateral renal micro-calculi and nonobstructing proximal right ureter micro-calculus. 4. New fluid distended stomach either from recent ingestion versus gastroparesis versus outlet obstruction. Comment: Preliminary interpretation made by [facility]. No critical discrepancy.
== END 2021-04-22 22:25 | disposition short-term general hospital (02) ==
LOC: ED 20:37
DX: N99.820 Postprocedural hemorrhage of a genitourinary system organ or structure following a genitourinary system procedure (principal)
CPT/HCPCS: 36000; 36415; 51702; 74176; 80053; 81001; 82150; 83690; 85025; 87086; 96365; 96374; 96375; 96376; 99285; J1170; J1885; J1956; J2060

== ENCOUNTER 2021-05-13 13:00 | Emergency (ER) | payer MEDICARE ==
[2021-05-13] MEDS ORDERED: Sodium Chloride 0.9% 1000 ML 1,000 ML IV STA (14:06)
[2021-05-13] MEDS ORDERED: Zofran 4 MG/2 ML VIAL IV ONE (14:06)
[2021-05-13] MEDS ORDERED: Hydromorphone 1 mg/ml Injection IV ONE (14:06)
[2021-05-13 14:12] LABS: Absolute Neutrophil Ct (ANC) 2.68 (1.4-6.9); BASOPHIL % 0.5 % (0.0-0.4); Basophil (Absolute #) 0.03 (0-0.4); Eosinophil (Absolute #) 0.46 (0-0.5); Hematocrit 41.1 % (42-50); Lymphocyte (Absolute #) 1.94 (1.0-4.6); Lymphocytes % 33.8 % (24.0-44.0); Mean Cell Volume 92.4 fl (78-100); Mean Corpuscular Hemoglobin 29.2 pg (26-32); Mean Corpuscular Hgb Concent. 31.6 g/dl (32-36); Mean Platelet Volume 11.3 fl (7.5-11.0); Monocyte (Absolute #) 0.63 (0.0-1.3); Neutrophil % 46.7 % (36.0-66.0); Platelet Count 384 K/mm3 (150-450); Red Blood Count 4.45 M/mm3 (4.1-5.6); Red Cell Distribution Width 14.2 % (11.5-14.0); White Blood Count 5.7 K/mm3 (4.0-10.5)
[2021-05-13] MEDS ORDERED: Hydromorphone 1 mg/ml Injection ONE (14:13)
[2021-05-13] MEDS ORDERED: Zofran 4 MG/2 ML VIAL ONE ×2 (14:13→14:21)
[2021-05-13 14:16] LABS: Appearance CLEAR (CLEAR); Bilirubin NEGATIVE (NEGATIVE); Blood MODERATE Ery/ul (0-5); Glucose NEGATIVE (NEGATIVE); Ketones NEGATIVE (NEGATIVE); Leukocyte Esterase NEGATIVE (NEGATIVE); Mucus SLIGHT /HPF (NEGATIVE); Nitrite NEGATIVE (NEGATIVE); Protein,Urine Dip 30 (Negative); RBC 51-100 /HPF (0-2); Specific Gravity 1.015 (1.005-1.025); Urobilinogen 2 mg/dL (0-1); WBC 0-2 /HPF (0-5)
[2021-05-13 14:17] LABS: ALBUMIN 4.2 g/dL (3.5-5.0); ALKALINE PHOSPHATASE 111 U/L (38-126); AMYLASE 85 U/L (30-110); ANION GAP 11.7 MEQ/L (5-15); BLOOD UREA NITROGEN 12 mg/dL (9-20); CHLORIDE 104 mmol/L (98-107); Calcium 9.3 mg/dL (8.4-10.2); Carbon Dioxide 26 mmol/L (22-30); Creatinine 1 0.88 mg/dL (0.66-1.25); EST GLOMERULAR FILTRATION RATE > 60.0 ML/MIN; Glucose 102 mg/dL (74-106); LIPASE 90 U/L (23-300); SGOT/AST 30 U/L (17-59); SGPT/ALT 25 U/L (0-50); SODIUM 138 mmol/L (137-145); Total Protein 7.3 g/dL (6.3-8.2)
[2021-05-13] MEDS ORDERED: Sodium Chloride 0.9% 1000 ML 1,000 ML ONE (14:21)
--- NOTE | 2021-05-13 14:51 | XRAY ---
Indication: Left flank pain. History bilateral lithotripsy. Multiple contiguous axial images obtained through the abdomen and pelvis without contrast. Comparison: April 22, 2021. Lung bases again demonstrates minimal dependent atelectasis. No infiltrate or effusion. Heart is not enlarged. Noncontrasted stomach and bowel loops nonobstructed. New 7-8mm left UPJ calculus with mild hydronephrosis. Left kidney again demonstrates a few and right kidney demonstrate single micro-calculi. Previous large right renal/perirenal hemorrhage has improved today measuring at least 9.8 x 5.3 x 14.6 cm. This was previously 14 x 11 x 18 cm. Remaining liver, gallbladder, pancreas, spleen, adrenal glands, ureters, and bladder are unremarkable for noncontrast exam. Stable mild aortoiliac calcifications. Osseous structures intact again with L3-L4 posterior fusion surgery. Impression: 1. New 7-8 mm left UPJ calculus with mild hydronephrosis. Again bilateral renal micro-calculi. 2. Improved right renal/perirenal hemorrhage with measurements above.
--- NOTE | 2021-05-13 14:58 | ERPHSYRPT ---
- History of Present Illness Time Seen by Provider: 05/13/21 13:35 Historian: patient Exam Limitations: no limitations Patient Subjective Stated Complaint: pt here for recurrent left flank.he recently had removal of kidney stones, nausea no vomiting Triage Nursing Assessment: pt alert, resp easy, skin w/d/p, face mask in place, skin w/d/p. has burning with urination Physician History: This is a 50-year-old white male who I am familiar with who I saw 2 to 3 weeks ago in this emergency department. Patient at that time was status post bilateral ureteral catheter removal and lithotripsy. He had a significant postop hemorrhage in the perirenal area. Patient was observed at [facility] in [facility] for approximately 4 days and was discharged to home. Patient was doing fairly well on tramadol pain medicine. However, the patient has been feeling well enough to increase his activity level and has been doing so. However the tramadol was not helping. He was complaining of more left flank pain in the last 2 to 3 days and wanted to be sure that there was not anything new that was present or there was or was not a worsening of his postoperative bleeding. Patient arrives to the emergency department hemodynamically stable. He states that Max 5/325 helps his pain better than the tramadol. His urologists are Dr. Mitchell and Dr. Jones Timing/Duration: day(s) (Last several days.) Activities at Onset: none Quality: aching Abdominal Pain Onset Location: flank (Left) Severity of Pain-Max: moderate Severity of Pain-Current: moderate Modifying Factors: Improves With: analgesics (Tramadol seems to help some but as he is walking and is more active it does not help as much as Max 5/325.), movement, walking Associated Symptoms: denies symptoms Previous symptoms: same symptoms as today, recently seen, recent hospitalization, recently treated Allergies/Adverse Reactions: No Known Drug Allergies Allergy (Verified 05/13/21 13:09) Home Medications: Diclofenac Sodium [Voltaren] 75 mg PO BID 01/22/19 [History] Gabapentin [Neurontin] 300 mg PO TID 01/22/19 [History] Nitroglycerin 0.4 mg Tablet [Nitrostat 0.4 MG Tablet] 0.4 mg SL UD 01/22/19 [History] Hx Tetanus, Diphtheria Vaccination/Date Given: Yes Hx Influenza Vaccination/Date Given: No Hx Pneumococcal Vaccination/Date Given: No Immunizations Up to Date: Yes Travel Risk - International Travel Have you traveled outside of the country in past 3 weeks: No - Coronavirus Screening Are you exhibiting any of the following symptoms?: No Close contact with a COVID-19 positive Pt in past 14-21 Days: No - Vaccine Status Have you recieved a Covid-19 vaccination: No - Review of Systems Constitutional: No Symptoms Eyes: No Symptoms Ears, Nose, & Throat: No Symptoms Respiratory: No Symptoms Cardiac: No Symptoms Abdominal/Gastrointestinal: No Symptoms Genitourinary Symptoms: Flank Pain (Left), Other (Patient does not notice any visible/gross hematuria) Musculoskeletal: No Symptoms Skin: No Symptoms Neurological: No Symptoms Psychological: No Symptoms Endocrine: No Symptoms Hematologic/Lymphatic: No Symptoms Immunological/Allergic: No Symptoms All Other Systems: Reviewed and Negative - Past Medical History Pertinent Past Medical History: Yes Neurological History: No Pertinent History ENT History: No Pertinent History Cardiac History: No Pertinent History Respiratory History: No Pertinent History Endocrine Medical History: No Pertinent History Musculoskeletal History: Arthritis GI Medical History: No Pertinent History History: No Pertinent History Psycho-Social History: No Pertinent History Male Reproductive Disorders: No Pertinent History Other Medical History: BACK PAIN--back fusion - Past Surgical History Past Surgical History: Yes Neuro Surgical History: No Pertinent History Cardiac: No Pertinent History Respiratory: No Pertinent History Gastrointestinal: No Pertinent History Genitourinary: No Pertinent History Musculoskeletal: Orthopedic Surgery Male Surgical History: No Pertinent History Other Surgical History: lt knee x 5 with last being knee replacement. Back fusion - Social History Smoking Status: Current every day smoker How long have you smoked: 20 YEARS Exposure to second hand smoke: No Drug Use: marijuana Patient Lives Alone: No - Nursing Vital Signs Nursing Vital Signs: Initial Vital Signs Temperature 96.8 F 05/13/21 13:10 Pulse Rate 63 05/13/21 13:10 Respiratory Rate 18 05/13/21 13:10 Blood Pressure 144/66 05/13/21 13:10 O2 Sat by Pulse Oximetry 99 05/13/21 13:10 Pain Scale Pain Intensity [Left Back] 6 Pain Intensity 2 - Physical Exam General Appearance: no apparent distress, alert, anxiety Eye Exam: PERRL/EOMI, eyes nml inspection Ears, Nose, Throat Exam: normal ENT inspection, moist mucous membranes Neck Exam: normal inspection, non-tender, supple, full range of motion Respiratory Exam: normal breath sounds, lungs clear, airway intact, No chest tenderness, No respiratory distress Cardiovascular Exam: regular rate/rhythm, normal heart sounds, normal peripheral pulses Gastrointestinal/Abdomen Exam: soft, normal bowel sounds, No tenderness, No guarding Rectal Exam: not done Back Exam: normal inspection, normal range of motion, CVA tenderness (Left), No vertebral tenderness Extremity Exam: normal inspection, normal range of motion, pelvis stable Neurologic Exam: alert, oriented x 3, cooperative, art appraiser II-XII nml as tested, normal mood/affect, nml cerebellar function, nml station & gait, sensation nml Skin Exam: normal color, warm, dry Lymphatic Exam: No adenopathy SpO2 Interpretation: normal SpO2: 99 O2 Delivery: Room Air - Course Nursing assessment & vital signs reviewed: Yes Ordered Tests: Active Orders 24 hr Category Date Time Status IV Insertion STAT Care 05/13/21 14:06 Active ABDOMEN AND PELVIS W/0 CONTRAS [CT] Stat Exams 05/13/21 14:07 Completed AMYLASE Stat Lab 05/13/21 13:40 Completed CBC W DIFF Stat Lab 05/13/21 14:00 Completed CMP Stat Lab 05/13/21 13:40 Completed CULTURE,URINE Stat Lab 05/13/21 14:11 Received LIPASE Stat Lab 05/13/21 13:40 Completed Lactic Acid Stat Lab 05/13/21 14:06 Ordered UA W/RFX UR CULTURE Stat Lab 05/13/21 14:11 Completed Medication Summary Generic Name Dose Route Start Last Admin Trade Name Freq PRN Reason Stop Dose Admin Sodium Chloride 1,000 mls @ 999 mls/hr 05/13/21 14:06 05/13/21 14:23 Sodium Chloride 0.9% 1000 Ml IV 05/13/21 15:06 999 mls/hr .Q1H1M STA Administration Discontinued Medications Generic Name Dose Route Start Last Admin Trade Name Freq PRN Reason Stop Dose Admin Hydromorphone HCl 1 mg 05/13/21 14:06 05/13/21 14:18 Hydromorphone 1 Mg/Ml Injection IV 05/13/21 14:07 1 mg STAT ONE Administration Hydromorphone HCl Confirm 05/13/21 14:13 Hydromorphone 1 Mg/Ml Injection Administered 05/13/21 14:14 Dose 1 mg .ROUTE .STK-MED ONE Sodium Chloride Confirm 05/13/21 14:21 Sodium Chloride 0.9% 1000 Ml Administered 05/13/21 14:22 Dose 1,000 mls @ ud .ROUTE .STK-MED ONE Ondansetron HCl 4 mg 05/13/21 14:06 05/13/21 14:21 Zofran 4 Mg/2 Ml Vial IV 05/13/21 14:07 4 mg STAT ONE Administration Ondansetron HCl Confirm 05/13/21 14:13 Zofran 4 Mg/2 Ml Vial Administered 05/13/21 14:14 Dose 4 mg .ROUTE .STK-MED ONE Ondansetron HCl Confirm 05/13/21 14:21 Zofran 4 Mg/2 Ml Vial Administered 05/13/21 14:22 Dose 4 mg .ROUTE .STK-MED ONE Lab/Rad Data: Laboratory Result Diagrams 05/13/21 14:00 05/13/21 13:40 Laboratory Results 05/13/21 05/13/21 05/13/21 Range/Units 14:11 14:00 13:40 WBC 5.7 (4.0-10.5) K/mm3 RBC 4.45 (4.1-5.6) M/mm3 Hgb 13.0 (12.5-18.0) gm/dl Hct 41.1 L (42-50) % MCV 92.4 (78-100) fl MCH 29.2 (26-32) pg MCHC 31.6 L (32-36) g/dl RDW 14.2 H (11.5-14.0) % Plt Count 384 (150-450) K/mm3 MPV 11.3 H (7.5-11.0) fl Gran % 46.7 (36.0-66.0) % Eos # (Auto) 0.46 (0-0.5) Absolute Lymphs (auto) 1.94 (1.0-4.6) Absolute Monos (auto) 0.63 (0.0-1.3) Lymphocytes % 33.8 (24.0-44.0) % Monocytes % 11.0 (0.0-12.0) % Eosinophils % 8.0 H (0.00-5.0) % Basophils % 0.5 (0.0-0.4) % Absolute Granulocytes 2.68 (1.4-6.9) Basophils # 0.03 (0-0.4) Sodium 138 (137-145) mmol/L Potassium 4.0 (3.5-5.1) mmol/L Chloride 104 (98-107) mmol/L Carbon Dioxide 26 (22-30) mmol/L Anion Gap 11.7 (5-15) MEQ/L BUN 12 (9-20) mg/dL Creatinine 0.88 (0.66-1.25) mg/dL Estimated GFR > 60.0 ML/MIN Glucose 102 (74-106) mg/dL Calcium 9.3 (8.4-10.2) mg/dL Total Bilirubin 0.60 (0.2-1.3) mg/dL AST 30 (17-59) U/L ALT 25 (0-50) U/L Alkaline Phosphatase 111 (38-126) U/L Serum Total Protein 7.3 (6.3-8.2) g/dL Albumin 4.2 (3.5-5.0) g/dL Amylase 85 (30-110) U/L Lipase 90 (23-300) U/L Urine Color YELLOW (YELLOW) Urine Appearance CLEAR (CLEAR) Urine pH 6.0 (5-6) Ur Specific [place] 1.015 (1.005-1.025) Urine Protein 30 (Negative) Urine Ketones NEGATIVE (NEGATIVE) Urine Blood MODERATE (0-5) Ronny/ul Urine Nitrite NEGATIVE (NEGATIVE) Urine Bilirubin NEGATIVE (NEGATIVE) Urine Urobilinogen 2 (0-1) mg/dL Ur Leukocyte Esterase NEGATIVE (NEGATIVE) Urine WBC (Auto) 0-2 (0-5) /HPF Urine RBC (Auto) 51-100 (0-2) /HPF Urine Mucus (Auto) SLIGHT (NEGATIVE) /HPF Urine Culture Reflexed YES (NO) Urine Glucose NEGATIVE (NEGATIVE) mg/dL Slides for Path Review - Progress Progress: improved, pain not gone completely, re-examined Progress Note: 05/13/21 15:00 Medical decision making: This patient had bilateral ureteral stents removed and lithotripsy performed approximately 2 to 3 weeks ago and had some postoperative hemorrhage and a very large perirenal hemorrhage. Patient was doing well until approximately a few days ago he noticed that he is having some mild to moderate left flank pain. He wanted to make sure that there was not any new problem or that the hemorrhage site is increased. Patient arrives to the emergency department hemodynamically stable. His hemoglobin is 13. His urinalysis shows hematuria but there is no evidence of infection. Repeat CAT scan of the abdomen pelvis shows a 7 to 8 mm left ureteral stone at the UPJ. There is only mild hydronephrosis present. The area of hemorrhage that was present before has significantly improved with measurements 9.8 cm x 5.3 cm x 14.6 cm. Patient states that he will contact his urologist today. He will take the Max I prescribed for him. He also states that he will follow his urologist recommendations. He was told to return to the emergency department if his symptoms worsen. Counseled pt/family regarding: lab results, diagnosis, need for follow-up, rad results - Departure Departure Disposition: Home Clinical Impression: Left ureteral calculus Condition: Stable Critical Care Time: No Referrals: KRISTIN SUTHERLAND [Primary Care Provider] - Additional Instructions: Drink plenty fluids. Take your medication as prescribed. Avoid any blood thinning medication of any kind. Call your urologist today to discuss the findings on the CAT scan. Follow-up in the emergency department if symptoms worsen. Patient is aware that the stone in the left ureter is of significant size and he might not be able to pass this stone on his own and therefore it is important for you to follow-up with urologist today. Prescriptions: Hydrocodone/APAP 5/325 [Max 5/325 mg] 1 each PO Q8H PRN PRN #8 tablet MDD 3 PRN Reason: Pain
[2021-05-13 15:47] VITALS: BP 121/75; PULSE 70; O2SAT 100
== END 2021-05-13 15:47 | disposition home or self-care (01) ==
LOC: ED 13:00
DX: N20.1 Calculus of ureter (principal); Z98.890 Other specified postprocedural states
CPT/HCPCS: 36000; 36415; 74176; 80053; 81001; 82150; 83605; 83690; 85025; 87086; 96374; 96375; 99284; J1170; J2405

== ENCOUNTER 2022-04-08 13:23 | Emergency (ER) | payer MEDICARE ==
[2022-04-08] MEDS ORDERED: KEFZOL 1 GM IM ONE (13:46)
[2022-04-08] MEDS ORDERED: KEFZOL 1 GM ONE (13:48)
[2022-04-08] MEDS ORDERED: Sterile H2O 10 ml IJ ONE (13:51)
--- NOTE | 2022-04-08 14:00 | ERPHSYRPT ---
- History of Present Illness Source: patient Exam Limitations: no limitations Patient Subjective Stated Complaint: L hand pain r/t lac just [employer] boat [employer] Triage Nursing Assessment: pt to ED c/o L hand pain r/t laceration to palm. reports he was moving metal curtain maya when it cut his hand. noted approx 5cm x 1 cm lac. not on blood thinners. bleeding controlled with pressure and dressing. rates 9/10 pain. Physician History: 51 yo wm w 5cm L palm lac after grabbing a curtain maya in his kitchen before presentation to ER. Pt is R handed and denies other injuries. He is UTD on Tetanus. Pt is a diabetic. Occurred: just prior to arrival Method of Injury: incised (Grabbed a curtain maya in his kitchen) Quality: constant Severity of Pain-Max: severe Severity of Pain-Current: severe Extremities Pain Location: hand: left Modifying Factors: Improves With: movement Associated Symptoms: none Allergies/Adverse Reactions: No Known Drug Allergies Allergy (Verified 04/08/22 13:43) Home Medications: Gabapentin [Neurontin] 300 mg PO TID 01/22/19 [History] Tramadol HCl 50 mg [Ultram 50 mg] 50 mg PO DAILY 04/08/22 [History] Hx Tetanus, Diphtheria Vaccination/Date Given: Yes Hx Influenza Vaccination/Date Given: No Hx Pneumococcal Vaccination/Date Given: No Immunizations Up to Date: No Travel Risk - International Travel Have you traveled outside of the country in past 3 weeks: No - Coronavirus Screening Are you exhibiting any of the following symptoms?: No Close contact with a COVID-19 positive Pt in past 14-21 Days: No - Vaccine Status Have you recieved a Covid-19 vaccination: No - Review of Systems Constitutional: No Symptoms Eyes: No Symptoms Ears, Nose, & Throat: No Symptoms Respiratory: No Symptoms Cardiac: No Symptoms Abdominal/Gastrointestinal: No Symptoms Genitourinary Symptoms: No Symptoms Skin: No Symptoms Neurological: Parasthesia Endocrine: No Symptoms Hematologic/Lymphatic: No Symptoms Immunological/Allergic: No Symptoms - Past Medical History Pertinent Past Medical History: Yes Neurological History: No Pertinent History ENT History: No Pertinent History Cardiac History: No Pertinent History Respiratory History: No Pertinent History Endocrine Medical History: Diabetes Type II Musculoskeletal History: Arthritis GI Medical History: No Pertinent History History: No Pertinent History Psycho-Social History: No Pertinent History Male Reproductive Disorders: No Pertinent History Other Medical History: BACK PAIN--back fusion - Past Surgical History Past Surgical History: Yes Neuro Surgical History: No Pertinent History Cardiac: No Pertinent History Respiratory: No Pertinent History Gastrointestinal: No Pertinent History Genitourinary: No Pertinent History Musculoskeletal: Orthopedic Surgery Male Surgical History: No Pertinent History Other Surgical History: lt knee x 5 with last being knee replacement. Back fusion - Social History Smoking Status: Current every day smoker How long have you smoked: 20 YEARS Exposure to second hand smoke: No Drug Use: marijuana Patient Lives Alone: No Significant Family History: no pertinent family hx - Nursing Vital Signs Nursing Vital Signs: Initial Vital Signs Temperature 97.8 F 04/08/22 13:35 Pulse Rate 76 04/08/22 13:35 Respiratory Rate 20 04/08/22 13:35 Blood Pressure 159/110 04/08/22 13:35 O2 Sat by Pulse Oximetry 95 04/08/22 13:35 Pain Scale Pain Intensity 9 Hypertensive - Physical Exam General Appearance: no apparent distress (In pain) Eyes, Ears, Nose, Throat Exam: normal ENT inspection, TMs normal, pharynx normal, moist mucous membranes Neck Exam: normal inspection, non-tender, supple, full range of motion, No Brudzinski, No Kernig's, No meningismus Cardiovascular/Respiratory Exam: normal breath sounds, regular rate/rhythm, heart sounds normal Abdominal Exam: non-tender, soft Back Exam: normal inspection, normal range of motion, No CVA tenderness, No vertebral tenderness Shoulder Exam: normal inspection Elbow/Forearm Exam: normal inspection Wrist Exam: normal inspection Hand Exam: laceration (Large 5cm transverse, palmar lac from MCP of 5th digit to MCP of 1st digit/Decreased sensation in digits 3-5/ROM appears intact but unable to fully evaluate due to pain) Neuro/Tendon Exam: sensory deficit (Digits 3-5) Mental Status Exam: alert, oriented x 3, cooperative Skin Exam: normal color, warm, dry SpO2 Interpretation: normal SpO2: 95 O2 Delivery: Room Air - Course Nursing assessment & vital signs reviewed: Yes Ordered Tests: Medication Summary Discontinued Medications Generic Name Dose Route Start Last Admin Trade Name Freq PRN Reason Stop Dose Admin Hydrocodone Bitart/Acetaminophen 1 tablet 04/08/22 14:01 04/08/22 14:07 Hydrocodone/Acetamin 10-325 Mg Tablet PO 04/08/22 14:02 1 tablet STAT ONE Administration Cefazolin Sodium 2 g 04/08/22 13:46 04/08/22 13:50 Cefazolin Sodium 1 Gm Vial IM 04/08/22 13:47 2 g STAT ONE Administration Cefazolin Sodium Confirm 04/08/22 13:48 Cefazolin Sodium 1 Gm Vial Administered 04/08/22 13:49 Dose 2 g .ROUTE .STK-MED ONE Sterile Water Confirm 04/08/22 13:51 Water For Injection,Sterile 10 Ml Vial Administered 04/08/22 13:52 Dose 10 ml IJ .STK-MED ONE - Progress Progress Note: 04/08/22 14:07 2gms IM Ancef [email or web address] po x1 Pt auto-accepted by Dr. Perrin [facility] Counseled pt/family regarding: diagnosis, need for follow-up - Departure Departure Disposition: Transfer Clinical Impression: Hand laceration, Hypertension Condition: Stable Critical Care Time: No Referrals: KRISTIN SUTHERLAND NP [Primary Care Provider] - Follow up/PCP as directed Instructions: Surgical Wound (DC) Additional Instructions: [facility] YOEL Nothing to eat/drink in route
[2022-04-08] MEDS ORDERED: HYDROCODONE-ACETAMIN 10-325 MG PO ONE (14:01)
[2022-04-08 14:37] VITALS: BP 175/111; PULSE 67
[2022-04-08 20:03] VITALS: O2SAT 95
== END 2022-04-08 14:20 | disposition short-term general hospital (02) ==
LOC: ED 13:23
DX: S61.412A Laceration without foreign body of left hand, initial encounter (principal); W26.8XXA Contact with other sharp object(s), not elsewhere classified, initial encounter; Y92.000 Kitchen of unspecified non-institutional (private) residence as the place of occurrence of the external cause; R20.2 Paresthesia of skin; M79.642 Pain in left hand; E11.9 Type 2 diabetes mellitus without complications; Z72.0 Tobacco use; Z79.891 Long term (current) use of opiate analgesic; Z79.899 Other long term (current) drug therapy; Z28.310 Unvaccinated for COVID-19
CPT/HCPCS: 96372; 99284; J0690; A9270-GY